=== PATIENT | female | born 1945 | race Caucasian/White ===

== ENCOUNTER 2016-06-17 10:25 | Inpatient (IN) | payer OTHER, MEDICAID ==
[~2016-06-17] VITALS: Ht 157.5 cm; Wt 82.6 kg
[~2016-06-17 10:25] MED LIST: ALPR0.25 PO; ATOR20TA PO; BACL10TA PO; DIPH25CA39 PO; DULO60CA PO; FERR-7 PO; FEXO-42 PO; FLUT100M7 IN; FOLI1TAB6 OR; GABA300C8 PO; HYDR25TA4 PO; LEFL20TA10 PO; LEV250T PO; LEVO50TA61 PO; LUBI24CA6 PO; MELO-41 OR; METO100T87 PO; NOR10T PO; NUTRTAB OR; PANT40TA2 PO; POTA10TA34 PO; PRED-188 PO; RIT50I IV; SENN-58 OR; TEMA15CA PO; TERI600S SUBCUT; [UNRECOGNIZED DRUG - CODE] PO
[2016-06-17 11:51] LABS: Basophils # (auto) 0 uL; Basophils % (auto) 0.4 % (0.0-2.0); Eosinophils # (auto) 0.1 uL; Eosinophils % (auto) 1.1 % (0.0-7.0); Hematocrit 38.2 % (36.0-46.0); Hemoglobin 12.3 g/dL (12.2-16.2); Lymphocytes # (auto) 0.8 uL; Lymphocytes % (auto) 6.9 % (10.0-50.0); Mean Corpuscular Hemoglobin 28.8 pg (28.0-32.0); Mean Corpuscular Hgb Conc. 32.1 g/dL (32.0-36.0); Mean Corpuscular Volume 89.7 fL (80.0-100.0); Mean Platelet Volume 9.1 fL (7.4-10.4); Monocytes # (auto) 0.8 uL; Monocytes % (auto) 7.2 % (0.0-12.0); Neutrophils # (auto) 9.9 uL; Neutrophils % (auto) 84.4 % (37.0-80.0); Platelet Count (auto) 290 10^3/uL (140-450); Red Cell Distribution Width 14.8 % (11.6-16.0); White Blood Cell 11.7 10^3/uL (4.4-10.8)
[2016-06-17] MEDS ORDERED: SODIUM CHLORIDE 0.9% 500 ML IVB ONE (12:02)
[2016-06-17] MEDS ORDERED: LEVOFLOXACIN 500 MG/100 ML PREMIX BAG IV ONE (12:15)
[2016-06-17 12:25] LABS: Albumin 3.7 g/dL (3.4-5.0); Alkaline Phosphatase 90 U/L (45-117); Anion Gap 12 (5-15); Aspartate Aminotransferase 17 U/L (15-37); BUN/Creatinine Ratio 20.2; Bilirubin, Total 0.3 mg/dL (0.2-1.0); Blood Urea Nitrogen 20 mg/dL (7-18); Calcium 9.3 mg/dL (8.5-10.1); Carbon Dioxide 28 mmol/L (21-32); Chloride 108 mmol/L (98-107); GFR African American 72 mL/min; GFR Non-African American 59 mL/min; Glucose 93 mg/dL (74-106); Potassium 3.6 mmol/L (3.5-5.1); Sodium 148 mmol/L (136-145); Total Protein 7.3 g/dL (6.4-8.2)
[2016-06-17] MEDS ORDERED: FENT25DI2 TD (13:33)
[2016-06-17] MEDS ORDERED: FURO20TA PO (13:34)
[2016-06-17] MEDS ORDERED: HYDR2TAB27 PO (13:34)
[2016-06-17] MEDS ORDERED: BACLOFEN 10 MG TAB PO PRN (15:15)
[2016-06-17] MEDS ORDERED: METOPROLOL SUCCINATE XL 50 MG TAB PO ONE (15:15)
[2016-06-17] MEDS ORDERED: ERTAPENEM SOD INJ 1 GM in SODIUM CHL 0.9% 50 ML IV ONE (15:15)
[2016-06-17] MEDS: SOD CHL 0.45% 1,000 ML IV SCH (15:51)
[2016-06-17 16:05] LABS: Urine Bilirubin Negative (Negative); Urine Blood Negative /uL (Negative); Urine Color Yellow (Yellow); Urine Glucose Normal (Normal); Urine Ketone TRACE (Negative); Urine Nitrite Negative (Negative); Urine RBC 1 /hpf (0 - 4); Urine Squamous Epithelial Cell FEW /hpf (<5); Urine Urobilinogen Normal (Negative)
[2016-06-17] MEDS: HYDROcodone-ACET 5/325MG TAB PO PRN (17:07)
[2016-06-17 20:00] VITALS: BP 163/87
[2016-06-17] MEDS: HYDROmorphone HCL 2 MG/ML VL IV PRN (20:10)
[2016-06-17 22:00] VITALS: BP 163/87
[2016-06-17] MEDS ORDERED: TEMAZEPAM 15 MG CAP PO PRN (23:00)
[2016-06-18] MEDS: HYDROmorphone HCL 2 MG/ML VL IV PRN ×2 (01:54→06:38)
[2016-06-18 05:30] VITALS: BP 153/90
[2016-06-18] MEDS: LEVOTHYROXINE SODIUM 100 MCG TAB PO SCH (06:21)
[2016-06-18] MEDS: SOD CHL 0.45% 1,000 ML IV SCH (06:37)
[2016-06-18 06:45] LABS: INR 1.02 (0.9-1.15); Partial Thromboplastin Time 26.2 sec (22.64-33.71)
[2016-06-18 06:57] LABS: BUN/Creatinine Ratio 16.9; Calcium 8.4 mg/dL (8.5-10.1); Potassium 3.3 mmol/L (3.5-5.1)
[2016-06-18 07:34] LABS: Basophils # (auto) 0 uL; Basophils % (auto) 0.2 % (0.0-2.0); Eosinophils # (auto) 0.2 uL; Eosinophils % (auto) 2.4 % (0.0-7.0); Hematocrit 34.3 % (36.0-46.0); Hemoglobin 11.1 g/dL (12.2-16.2); Lymphocytes # (auto) 1.1 uL; Lymphocytes % (auto) 14.4 % (10.0-50.0); Mean Corpuscular Hemoglobin 28.8 pg (28.0-32.0); Mean Corpuscular Hgb Conc. 32.2 g/dL (32.0-36.0); Mean Corpuscular Volume 89.3 fL (80.0-100.0); Mean Platelet Volume 9.1 fL (7.4-10.4); Monocytes # (auto) 0.7 uL; Monocytes % (auto) 9.3 % (0.0-12.0); Neutrophils # (auto) 5.7 uL; Neutrophils % (auto) 73.7 % (37.0-80.0); Platelet Count (auto) 270 10^3/uL (140-450); White Blood Cell 7.7 10^3/uL (4.4-10.8)
[2016-06-18 07:51] VITALS: BP 164/93
[2016-06-18] MEDS ORDERED: D5W/SOD CHL 0.45%/KCL 40MEQ 1,000 ML IV ONE (09:00)
[2016-06-18] MEDS ORDERED: ONDANSETRON HCL 4 MG/2 ML VIAL IV PRN (09:00)
[2016-06-18] MEDS ORDERED: ERTAPENEM SOD INJ 1 GM in SODIUM CHL 0.9% 50 ML IV SCH (10:00)
[2016-06-18] MEDS: predniSONE 5 MG TAB PO SCH (10:52)
[2016-06-18] MEDS: FOLIC ACID 1 MG TAB PO SCH (10:52)
[2016-06-18] MEDS: PANTOPRAZOLE 40 MG TAB PO SCH (10:53)
[2016-06-18] MEDS: METOPROLOL SUCCINATE XL 50 MG TAB PO SCH (10:57)
[2016-06-18] MEDS ORDERED: ALPRAZolam 0.25 MG TAB PO PRN (11:00)
[2016-06-18] MEDS ORDERED: fentaNYL 100MCG/HR 100 MCG/HR PAT TD SCH (11:00)
[2016-06-18] MEDS ORDERED: cefTRIAXone 1GM/50ML D5W 50 ML IV ONE (11:00)
[2016-06-18] MEDS ORDERED: POTASSIUM CHL 20 Meq TABLET PO ONE (11:00)
[2016-06-18] MEDS: IPRATROPIUM BROM 0.5 MG/2.5ML INH SOL NEB SCH ×2 (12:54→18:00)
[2016-06-18] MEDS: ALBUTEROL SULF 2.5 MG/0.5ML(0.5%) NEB SOLN NEB SCH ×2 (12:54→18:00)
[2016-06-18 13:45] VITALS: BP 149/68
[2016-06-18] MEDS: GABAPENTIN 300 MG CAP PO SCH ×2 (14:28→21:34)
[2016-06-18 16:10] VITALS: BP 162/89
[2016-06-18] MEDS: HYDROcodone-ACET 5/325MG TAB PO PRN (20:14)
[2016-06-18 22:00] VITALS: BP 151/78
[2016-06-19] MEDS: HYDROcodone-ACET 5/325MG TAB PO PRN (02:28)
[2016-06-19] MEDS: LEVOTHYROXINE SODIUM 100 MCG TAB PO SCH (05:28)
[2016-06-19] MEDS: GABAPENTIN 300 MG CAP PO SCH (05:28)
[2016-06-19 05:30] VITALS: BP 151/84
[2016-06-19] MEDS: ALBUTEROL SULF 2.5 MG/0.5ML(0.5%) NEB SOLN NEB SCH ×3 (06:43→12:10)
[2016-06-19] MEDS: IPRATROPIUM BROM 0.5 MG/2.5ML INH SOL NEB SCH ×3 (06:43→12:10)
[2016-06-19 08:48] VITALS: BP 165/97
[2016-06-19] MEDS ORDERED: cefTRIAXone 1GM/50ML D5W 50 ML IV SCH (09:00)
[2016-06-19] MEDS ORDERED: LEFLUNOMIDE 20 MG PO SCH (10:00)
[2016-06-19] MEDS ORDERED: POTASSIUM CHL 20 Meq TABLET PO SCH (10:00)
[2016-06-19] MEDS: FOLIC ACID 1 MG TAB PO SCH (10:45)
[2016-06-19] MEDS: METOPROLOL SUCCINATE XL 50 MG TAB PO SCH (10:46)
[2016-06-19] MEDS: predniSONE 5 MG TAB PO SCH (10:47)
[2016-06-19] MEDS: PANTOPRAZOLE 40 MG TAB PO SCH (10:47)
[2016-06-19 11:43] VITALS: BP 165/97
[2016-06-19 12:16] VITALS: BP 154/93
[2016-06-19 13:50] VITALS: BP 165/97
== END 2016-06-19 13:40 | disposition home or self-care (01) | DRG 92 ==
LOC: ER 10:25 → OVERFLOW 10:26 → EAST 18:03
PROVIDERS: ADMIT Internal Medicine; ATTEND Internal Medicine
DX: G92 Toxic encephalopathy (principal); J96.10 Chronic respiratory failure, unspecified whether with hypoxia or hypercapnia; N39.0 Urinary tract infection, site not specified; I50.42 Chronic combined systolic (congestive) and diastolic (congestive) heart failure; M06.9 Rheumatoid arthritis, unspecified; J44.9 Chronic obstructive pulmonary disease, unspecified; G89.29 Other chronic pain; E03.9 Hypothyroidism, unspecified; E78.5 Hyperlipidemia, unspecified; F41.9 Anxiety disorder, unspecified; T40.605A Adverse effect of unspecified narcotics, initial encounter; I11.0 Hypertensive heart disease with heart failure; E66.9 Obesity, unspecified; I25.10 Atherosclerotic heart disease of native coronary artery without angina pectoris; M19.90 Unspecified osteoarthritis, unspecified site; Z85.9 Personal history of malignant neoplasm, unspecified; Z87.891 Personal history of nicotine dependence; Z90.710 Acquired absence of both cervix and uterus; Z98.890 Other specified postprocedural states; Z68.33 Body mass index [BMI] 33.0-33.9, adult; Y92.89 Other specified places as the place of occurrence of the external cause; Z79.899 Other long term (current) drug therapy; Z86.010 Personal history of colon polyps
CPT/HCPCS: 36415; 51702; 70450; 71010; 72170; 80048; 80053; 81001; 82962; 83605; 83735; 84443; 84484; 85025; 85610; 85730; 87040; 93005; 94640; 94761; 96361; 96365; J0696; J1335; J1956; J2405

== ENCOUNTER 2017-02-04 08:23 | Inpatient (IN) | payer OTHER, MEDICAID ==
[~2017-02-04] VITALS: Ht 160 cm; Wt 92.6 kg
[~2017-02-04 08:23] MED LIST changes: +FENT25DI2 TD; +FURO20TA PO; +GABA-497 PO; -GABA300C8 PO; -HYDR25TA4 PO; +HYDR2TAB29 PO; -LEV250T PO; -NOR10T PO; -RIT50I IV; -TERI600S SUBCUT; -[UNRECOGNIZED DRUG - CODE] PO
[2017-02-04 09:21] LABS: Basophils # (auto) 0.1 uL; Eosinophils # (auto) 0.1 uL; Eosinophils % (auto) 0.7 % (0.0-7.0); Hematocrit 32.8 % (36.0-46.0); Hemoglobin 10.3 g/dL (12.2-16.2); Lymphocytes # (auto) 0.8 uL; Lymphocytes % (auto) 5.8 % (10.0-50.0); Mean Corpuscular Hgb Conc. 31.5 g/dL (32.0-36.0); Mean Corpuscular Volume 88.6 fL (80.0-100.0); Mean Platelet Volume 8.6 fL (6.9-10.8); Monocytes # (auto) 1.3 uL; Monocytes % (auto) 9.3 % (0.0-12.0); Neutrophils % (auto) 83.2 % (37.0-80.0); Nucleated Red Blood Cells % 0.2 %; Platelet Count (auto) 230 10^3/uL (140-450); Red Cell Distribution Width 14.9 % (11.8-14.3); White Blood Cell 14.5 10^3/uL (4.4-10.8)
[2017-02-04 09:28] LABS: Anion Gap 7 (5-15); Aspartate Aminotransferase 33 U/L (15-37); BUN/Creatinine Ratio 19.3; Blood Urea Nitrogen 29 mg/dL (7-18); Calcium 8.7 mg/dL (8.5-10.1); Carbon Dioxide 28 mmol/L (21-32); Chloride 109 mmol/L (98-107); GFR African American 44 mL/min; GFR Non-African American 37 mL/min; Glucose 136 mg/dL (74-106); Magnesium 1.5 mg/dL (1.6-2.6); Potassium 3.9 mmol/L (3.5-5.1); Sodium 144 mmol/L (136-145)
[2017-02-04 09:33] LABS: Alkaline Phosphatase 95 U/L (45-117); Bilirubin, Total 0.3 mg/dL (0.2-1.0); Total Protein 6.4 g/dL (6.4-8.2)
[2017-02-04 10:21] LABS: Urine Bilirubin Negative (Negative); Urine Blood 1+ /uL (Negative); Urine Color Yellow (Yellow); Urine Glucose Normal (Normal); Urine Ketone Negative (Negative); Urine Mucus FEW (None Seen); Urine Nitrite POSITIVE (Negative); Urine RBC 23 /hpf (0 - 4); Urine Urobilinogen Normal (Negative); Urine WBC Clumps PRESENT /hpf (None Seen); Urine pH 5.5 (5.0-8.0)
[2017-02-04] MEDS ORDERED: cefTRIAXone 1GM/50ML D5W 50 ML IV ONE (10:45)
[2017-02-04] MEDS ORDERED: AZITHROMYCIN 500MG/ 250ML 250 ML IV ONE (10:45)
[2017-02-04] MEDS ORDERED: ACETAMINOPHEN 325 MG TAB PO PRN (12:45)
[2017-02-04] MEDS ORDERED: TEMAZEPAM 15 MG CAP PO PRN (12:45)
[2017-02-04] MEDS ORDERED: NITROGLYCERIN 0.4 MG SL TAB SL PRN (12:45)
[2017-02-04] MEDS ORDERED: DOCUSATE SOD 100 MG CAP PO PRN (12:45)
[2017-02-04] MEDS ORDERED: ONDANSETRON HCL 4 MG/2 ML VIAL IV PRN (12:45)
[2017-02-04] MEDS ORDERED: HYDROcodone-ACET 5/325MG TAB PO PRN (12:45)
[2017-02-04] MEDS: FAMOTIDINE 20 MG TAB PO SCH (12:59)
[2017-02-04] MEDS ORDERED: MULTIPLE VITAMIN TAB PO ONE (13:00)
[2017-02-04] MEDS ORDERED: LACTULOSE 20Gm/30ML SOLN PO PRN (13:00)
[2017-02-04] MEDS ORDERED: ALPRAZolam 0.25 MG TAB PO PRN (13:00)
[2017-02-04] MEDS ORDERED: BACLOFEN 10 MG TAB PO PRN (13:15)
[2017-02-04] MEDS ORDERED: PANTOPRAZOLE 40 MG TAB PO ONE (13:15)
[2017-02-04] MEDS ORDERED: POTASSIUM CHL 10 Meq TABLET PO ONE (13:15)
[2017-02-04] MEDS ORDERED: ESTRADIOL 1 MG TAB PO ONE (13:15)
[2017-02-04] MEDS ORDERED: METOPROLOL SUCCINATE XL 50 MG TAB PO ONE (13:15)
[2017-02-04] MEDS ORDERED: predniSONE 5 MG TAB PO ONE (13:15)
[2017-02-04] MEDS ORDERED: FOLIC ACID 1 MG TAB PO ONE (13:15)
[2017-02-04] MEDS ORDERED: DULoxetine HCL 30 MG CAP PO ONE (13:15)
[2017-02-04] MEDS ORDERED: FUROSEMIDE 20 MG TAB PO ONE (13:15)
[2017-02-04] MEDS: SODIUM CHLOR 0.9% PF (SALINE LOCK) 10ML VIAL IV SCH ×2 (13:30→22:17)
[2017-02-04] MEDS: GABAPENTIN 300 MG CAP PO SCH ×2 (13:33→22:26)
[2017-02-04] MEDS: ALBUTEROL SULF 2.5 MG/0.5ML(0.5%) NEB SOLN NEB SCH ×2 (14:37→18:58)
[2017-02-04 16:58] VITALS: BP 130/65
[2017-02-04 17:31] VITALS: BP 130/65
[2017-02-04] MEDS: FERROUS SULFATE 325 MG TAB PO SCH (18:43)
[2017-02-04] MEDS: HYDROmorphone HCL 2 MG TAB PO PRN (18:44)
[2017-02-04] MEDS: diphenhdrAMINE HCL 25 MG CAP PO SCH (18:44)
[2017-02-04] MEDS: BUDESONIDE (INHALATION) 0.5 MG/2 ML NEB NEB SCH (18:57)
[2017-02-04 20:17] VITALS: BP 130/65
[2017-02-04] MEDS ORDERED: DEXTROSE (50%) 50ML SYRG IV PRN (20:30)
[2017-02-04 21:54] VITALS: BP 115/72
[2017-02-04] MEDS ORDERED: SENNA 8.6 MG TAB PO SCH (22:00)
[2017-02-04] MEDS ORDERED: FAMOTIDINE 20 MG TAB PO SCH (22:00)
[2017-02-04] MEDS ORDERED: ATORVASTATIN 20 MG TAB PO SCH (22:00)
[2017-02-04] MEDS ORDERED: PATIENTS OWN MEDICATION IN SCH ×2 (22:00)
[2017-02-04] MEDS: InsuLIN REG 1unit/0.01ml Soln (100units/ml) SC SCH (22:00)
[2017-02-04] MEDS: FEXOFENADINE HCL 60 MG TAB PO SCH (22:22)
[2017-02-04] MEDS: ACCU-CHEK COMFORT CURVE STRIP VI SCH (22:32)
[2017-02-05] MEDS: diphenhdrAMINE HCL 25 MG CAP PO SCH ×3 (00:43→12:00)
[2017-02-05] MEDS: HYDROmorphone HCL 2 MG TAB PO PRN ×2 (03:31→10:20)
[2017-02-05 05:00] VITALS: BP_SYST 126; BP_SYST 134; BP_DIAS 68; BP_DIAS 73
[2017-02-05] MEDS: ALBUTEROL SULF 2.5 MG/0.5ML(0.5%) NEB SOLN NEB SCH (06:28)
[2017-02-05] MEDS: BUDESONIDE (INHALATION) 0.5 MG/2 ML NEB NEB SCH (06:28)
[2017-02-05] MEDS: SODIUM CHLOR 0.9% PF (SALINE LOCK) 10ML VIAL IV SCH (06:31)
[2017-02-05] MEDS: GABAPENTIN 300 MG CAP PO SCH ×2 (06:35→14:52)
[2017-02-05 06:41] LABS: Basophils # (auto) 0.1 uL; Eosinophils # (auto) 0.2 uL; Eosinophils % (auto) 1.8 % (0.0-7.0); Hematocrit 30.2 % (36.0-46.0); Lymphocytes # (auto) 1.3 uL; Lymphocytes % (auto) 12.5 % (10.0-50.0); Mean Corpuscular Hemoglobin 29.1 pg (28.0-32.0); Mean Corpuscular Volume 88.1 fL (80.0-100.0); Mean Platelet Volume 8.7 fL (6.9-10.8); Monocytes # (auto) 1.1 uL; Monocytes % (auto) 10.6 % (0.0-12.0); Neutrophils # (auto) 7.9 uL; Neutrophils % (auto) 74.1 % (37.0-80.0); Nucleated Red Blood Cells % 0.1 %; Platelet Count (auto) 215 10^3/uL (140-450); Red Cell Distribution Width 15.2 % (11.8-14.3); White Blood Cell 10.7 10^3/uL (4.4-10.8)
[2017-02-05] MEDS: InsuLIN REG 1unit/0.01ml Soln (100units/ml) SC SCH ×2 (06:41→11:30)
[2017-02-05] MEDS: ACCU-CHEK COMFORT CURVE STRIP VI SCH ×2 (06:41→11:30)
[2017-02-05 06:50] LABS: B-Type Natriuretic Peptide 146.66 pg/mL (0-100)
[2017-02-05] MEDS ORDERED: LEVOTHYROXINE SODIUM 100 MCG TAB PO SCH (07:00)
[2017-02-05 07:10] LABS: Albumin 2.9 g/dL (3.4-5.0); BUN/Creatinine Ratio 21.5; Bilirubin, Total 0.2 mg/dL (0.2-1.0); Calcium 8.3 mg/dL (8.5-10.1); Potassium 3.4 mmol/L (3.5-5.1); Total Protein 6.4 g/dL (6.4-8.2)
[2017-02-05 07:31] LABS: Temperature: 21.6 C (20.0-25.0)
[2017-02-05] MEDS: Boost Glucose Control 8 Ounces PO SCH ×2 (08:00→13:04)
[2017-02-05] MEDS: FERROUS SULFATE 325 MG TAB PO SCH (08:17)
[2017-02-05 08:56] VITALS: BP 136/71
[2017-02-05] MEDS ORDERED: cefTRIAXone 1GM/50ML D5W 50 ML IV SCH (09:00)
[2017-02-05] MEDS ORDERED: ESTRADIOL 1 MG TAB PO SCH (10:00)
[2017-02-05] MEDS ORDERED: POTASSIUM CHL 10 Meq TABLET PO SCH (10:00)
[2017-02-05] MEDS ORDERED: predniSONE 5 MG TAB PO SCH (10:00)
[2017-02-05] MEDS ORDERED: AZITHROMYCIN 500MG/ 250ML 250 ML IV SCH (10:00)
[2017-02-05] MEDS ORDERED: FUROSEMIDE 20 MG TAB PO SCH (10:00)
[2017-02-05] MEDS ORDERED: PANTOPRAZOLE 40 MG TAB PO SCH (10:00)
[2017-02-05] MEDS ORDERED: LEFLUNOMIDE 20 MG PO SCH (10:00)
[2017-02-05] MEDS ORDERED: METOPROLOL SUCCINATE XL 50 MG TAB PO SCH ×2 (10:00)
[2017-02-05] MEDS ORDERED: FOLIC ACID 1 MG TAB PO SCH (10:00)
[2017-02-05] MEDS ORDERED: MULTIPLE VITAMIN TAB PO SCH (10:00)
[2017-02-05] MEDS ORDERED: DULoxetine HCL 30 MG CAP PO SCH (10:00)
[2017-02-05] MEDS: FAMOTIDINE 20 MG TAB PO SCH (10:12)
[2017-02-05] MEDS: FEXOFENADINE HCL 60 MG TAB PO SCH (10:16)
[2017-02-05 13:27] VITALS: BP 142/94
[2017-02-05 14:53] VITALS: BP 136/71
== END 2017-02-05 17:49 | disposition home health service (06) | DRG 871 ==
LOC: EDBD 08:23 → ER 08:23 → TELE 08:24 → TELE-EAST 17:05
PROVIDERS: ADMIT Internal Medicine; ATTEND Internal Medicine
DX: A41.9 Sepsis, unspecified organism (principal); G92 Toxic encephalopathy; E44.0 Moderate protein-calorie malnutrition; J18.9 Pneumonia, unspecified organism; E11.21 Type 2 diabetes mellitus with diabetic nephropathy; Z99.81 Dependence on supplemental oxygen; G45.9 Transient cerebral ischemic attack, unspecified; J44.0 Chronic obstructive pulmonary disease with (acute) lower respiratory infection; N39.0 Urinary tract infection, site not specified; E11.65 Type 2 diabetes mellitus with hyperglycemia; D63.8 Anemia in other chronic diseases classified elsewhere; E03.9 Hypothyroidism, unspecified; E11.22 Type 2 diabetes mellitus with diabetic chronic kidney disease; I25.10 Atherosclerotic heart disease of native coronary artery without angina pectoris; E78.5 Hyperlipidemia, unspecified; R09.02 Hypoxemia; N18.3 Chronic kidney disease, stage 3 (moderate); M06.9 Rheumatoid arthritis, unspecified; M19.90 Unspecified osteoarthritis, unspecified site; Z68.36 Body mass index [BMI] 36.0-36.9, adult; Z87.891 Personal history of nicotine dependence; Z90.710 Acquired absence of both cervix and uterus
CPT/HCPCS: 36415; 70450; 71010; 80053; 81001; 82962; 83036; 83735; 83880; 84443; 84484; 85025; 87040; 87086; 87088; 87186; 93005; 94640; 96361; 96365; J0696

== ENCOUNTER 2017-04-23 09:48 | Inpatient (IN) | payer OTHER, MEDICAID ==
[~2017-04-23] VITALS: Ht 160 cm; Wt 92.1 kg
[2017-04-23] MEDS: BUDESONIDE (INHALATION) 0.5 MG/2 ML NEB NEB SCH
[~2017-04-23 09:48] MED LIST changes: -GABA-497 PO; +GABA300C10 PO; -HYDR2TAB29 PO; +HYDR2TAB58 PO; +LEFL1TAB3 PO; -LEFL20TA10 PO
[2017-04-23 10:57] LABS: Urine Bacteria NONE SEEN /hpf (None Seen); Urine Blood Negative /uL (Negative); Urine Specific Gravity 1.008 (1.001-1.035); Urine WBC <1 /hpf (0 - 5)
[2017-04-23 10:57] LABS: Basophils # (auto) 0.2 uL; Eosinophils # (auto) 0.2 uL; Eosinophils % (auto) 1.5 % (0.0-7.0); Hematocrit 34.8 % (36.0-46.0); Hemoglobin 10.8 g/dL (12.2-16.2); Lymphocytes # (auto) 0.9 uL; Lymphocytes % (auto) 5.6 % (10.0-50.0); Mean Corpuscular Hemoglobin 27.5 pg (28.0-32.0); Mean Corpuscular Hgb Conc. 31.1 g/dL (32.0-36.0); Mean Corpuscular Volume 88.3 fL (80.0-100.0); Monocytes # (auto) 1.7 uL; Monocytes % (auto) 10.7 % (0.0-12.0); Neutrophils # (auto) 13.3 uL; Neutrophils % (auto) 81.2 % (37.0-80.0); Platelet Count (auto) 261 10^3/uL (140-450); Red Blood Cells 3.94 10^6/uL (4.0-5.20); Red Cell Distribution Width 15.1 % (11.8-14.3); White Blood Cell 16.4 10^3/uL (4.4-10.8)
[2017-04-23] MEDS ORDERED: SODIUM CHLORIDE 0.9% 1,000 ML IVB ONE (11:11)
[2017-04-23] MEDS ORDERED: ONDANSETRON HCL 4 MG/2 ML VIAL IV ONE (11:15)
[2017-04-23 11:23] LABS: Alanine Aminotransferase 15 U/L (13-56); Albumin 3.3 g/dL (3.4-5.0); Alkaline Phosphatase 90 U/L (45-117); Anion Gap 10 (5-15); Aspartate Aminotransferase 16 U/L (15-37); BUN/Creatinine Ratio 19.2; Bilirubin, Total 0.3 mg/dL (0.2-1.0); Blood Urea Nitrogen 30 mg/dL (7-18); Calcium 8.6 mg/dL (8.5-10.1); Carbon Dioxide 28 mmol/L (21-32); Chloride 106 mmol/L (98-107); GFR African American 42 mL/min; GFR Non-African American 35 mL/min; Glucose 110 mg/dL (74-106); Magnesium 1.8 mg/dL (1.6-2.6); Potassium 3.8 mmol/L (3.5-5.1); Sodium 144 mmol/L (136-145); Total Protein 7.2 g/dL (6.4-8.2)
[2017-04-23 12:03] LABS: INR 0.92 (0.9-1.15)
[2017-04-23 12:08] LABS: Amylase 50 U/L (25-115); Lipase 83 U/L (73-393)
[2017-04-23] MEDS ORDERED: MORPHINE SULF INJ 2 MG/ML SYRINGE 1ML IV ONE (12:30)
[2017-04-23] MEDS ORDERED: AZITHROMYCIN 500MG/ 250ML 250 ML IV ONE (12:45)
[2017-04-23] MEDS ORDERED: cefTRIAXone 1GM/10ml IVPUSH 10 ML IV ONE (12:45)
[2017-04-23] MEDS ORDERED: MEPERIDINE HCL (25 MG/ML) 1ML VIAL IV ONE (12:45)
[2017-04-23] MEDS ORDERED: MEPERIDINE HCL (50 MG/ML) 1 ML VIAL ONE (12:46)
[2017-04-23] MEDS ORDERED: OSELTAMIVIR 75 MG CAP PO ONE (13:30)
[2017-04-23] MEDS ORDERED: LACTULOSE 20Gm/30ML SOLN PO PRN (13:30)
[2017-04-23] MEDS ORDERED: PIPERACILLIN-TAZOB 3.375GM 50 ML IV ONE (13:30)
[2017-04-23] MEDS ORDERED: fentaNYL 25MCG/HR 25 MCG/HR PAT TD SCH (13:30)
[2017-04-23] MEDS ORDERED: MORPHINE SULF INJ 2 MG/ML SYRINGE 1ML IV PRN (13:30)
[2017-04-23] MEDS ORDERED: HYDROmorphone HCL 2 MG/ML VL IV PRN (13:30)
[2017-04-23] MEDS ORDERED: PROMETHAZINE HCL 25 MG/ML 1ML IV PRN (13:30)
[2017-04-23] MEDS ORDERED: LORazepam 0.5 MG TAB PO PRN (13:30)
[2017-04-23] MEDS ORDERED: NITROGLYCERIN 0.4 MG SL TAB SL PRN (13:30)
[2017-04-23] MEDS ORDERED: ALBUTEROL SULF 2.5 MG/0.5ML(0.5%) NEB SOLN NEB PRN (13:30)
[2017-04-23] MEDS ORDERED: ACETAMINOPHEN 500 MG TAB PO PRN (13:30)
[2017-04-23] MEDS: SODIUM CHLORIDE 0.9% 1,000 ML IV SCH (13:55)
[2017-04-23] MEDS ORDERED: METOPROLOL SUCCINATE XL 50 MG TAB PO ONE (14:15)
[2017-04-23] MEDS ORDERED: POTASSIUM CHL 10 Meq TABLET PO ONE (14:15)
[2017-04-23] MEDS ORDERED: fentaNYL 100MCG/HR 100 MCG/HR PAT TD SCH (14:30)
[2017-04-23] MEDS ORDERED: DULoxetine HCL 30 MG CAP PO ONE (14:30)
[2017-04-23] MEDS: ENOXAPARIN SOD 40 MG/0.4 ML SYRINGE SC SCH (14:40)
[2017-04-23] MEDS: methylPREDNISolone SOD SUCC 40 MG/ML VL IV SCH (14:40)
[2017-04-23] MEDS: GABAPENTIN 300 MG CAP PO SCH ×2 (14:41→21:20)
[2017-04-23 17:25] VITALS: BP 99/50
[2017-04-23] MEDS: LINEZOLID 600MG/300ML 300 ML IV SCH (17:52)
[2017-04-23] MEDS: ALBUTEROL SULF 2.5 MG/0.5ML(0.5%) NEB SOLN NEB SCH ×2 (18:00)
[2017-04-23] MEDS: HYDROmorphone HCL 2 MG TAB PO PRN (18:45)
[2017-04-23] MEDS: IPRATROPIUM BROM 0.5 MG/2.5ML INH SOL NEB SCH (19:56)
[2017-04-23] MEDS: ATORVASTATIN 20 MG TAB PO SCH (21:20)
[2017-04-23] MEDS: HYDROcodone-ACET 5/325MG TAB PO PRN (21:21)
[2017-04-23] MEDS: FERROUS SULFATE 325 MG TAB PO SCH (21:21)
[2017-04-23 22:00] VITALS: BP 129/78
[2017-04-23] MEDS: SENNA 8.6 MG TAB PO SCH (22:00)
[2017-04-23] MEDS: OSELTAMIVIR 30 MG CAP PO SCH (22:00)
[2017-04-23] MEDS ORDERED: TEMAZEPAM 15 MG CAP PO SCH (22:00)
[2017-04-23] MEDS: ALPRAZolam 0.25 MG TAB PO SCH (22:00)
[2017-04-23] MEDS: LUBIPROSTONE 24 MCG PO SCH (22:00)
[2017-04-23] MEDS: BACLOFEN 10 MG TAB PO PRN (23:10)
[2017-04-23] MEDS: PIPERACILLIN-TAZOB 3.375GM 50 ML IV SCH (23:11)
[2017-04-23] MEDS: TEMAZEPAM 15 MG CAP PO PRN (23:11)
[2017-04-23 23:45] VITALS: BP 99/50
[2017-04-24] MEDS: HYDROmorphone HCL 2 MG TAB PO PRN ×5 (01:04→22:04)
[2017-04-24] MEDS: methylPREDNISolone SOD SUCC 40 MG/ML VL IV SCH ×2 (01:30→12:09)
[2017-04-24] MEDS: SODIUM CHLORIDE 0.9% 1,000 ML IV SCH (02:42)
[2017-04-24] MEDS: LINEZOLID 600MG/300ML 300 ML IV SCH (04:42)
[2017-04-24 05:00] VITALS: BP 159/83
[2017-04-24] MEDS: HYDROcodone-ACET 5/325MG TAB PO PRN ×2 (05:29→17:00)
[2017-04-24 05:39] LABS: Basophils # (auto) 0 uL; Basophils % (auto) 0.3 % (0.0-2.0); Eosinophils # (auto) 0 uL; Hematocrit 30.7 % (36.0-46.0); Hemoglobin 9.7 g/dL (12.2-16.2); Lymphocytes % (auto) 6.2 % (10.0-50.0); Mean Corpuscular Hemoglobin 28.1 pg (28.0-32.0); Mean Corpuscular Hgb Conc. 31.6 g/dL (32.0-36.0); Mean Corpuscular Volume 88.9 fL (80.0-100.0); Monocytes # (auto) 1.2 uL; Neutrophils # (auto) 14.5 uL; Neutrophils % (auto) 86.5 % (37.0-80.0); Platelet Count (auto) 229 10^3/uL (140-450); Red Blood Cells 3.46 10^6/uL (4.0-5.20); Red Cell Distribution Width 15.2 % (11.8-14.3); White Blood Cell 16.7 10^3/uL (4.4-10.8)
[2017-04-24 05:55] LABS: Albumin 2.8 g/dL (3.4-5.0); BUN/Creatinine Ratio 21.9; Bilirubin, Total 0.3 mg/dL (0.2-1.0); Potassium 4.4 mmol/L (3.5-5.1); Total Protein 6.4 g/dL (6.4-8.2)
[2017-04-24] MEDS: ALBUTEROL SULF 2.5 MG/0.5ML(0.5%) NEB SOLN NEB SCH ×7 (06:00→18:00)
[2017-04-24] MEDS: PIPERACILLIN-TAZOB 3.375GM 50 ML IV SCH ×3 (06:00→12:09)
[2017-04-24] MEDS: IPRATROPIUM BROM 0.5 MG/2.5ML INH SOL NEB SCH ×4 (08:06→20:10)
[2017-04-24] MEDS: BUDESONIDE (INHALATION) 0.5 MG/2 ML NEB NEB SCH ×2 (08:07→20:10)
[2017-04-24] MEDS: FOLIC ACID 1 MG TAB PO SCH (09:06)
[2017-04-24] MEDS: LEVOTHYROXINE SODIUM 100 MCG TAB PO SCH (09:06)
[2017-04-24] MEDS: AZITHROMYCIN 500MG/ 250ML 250 ML IV SCH (09:16)
[2017-04-24] MEDS: GABAPENTIN 300 MG CAP PO SCH ×3 (09:16→22:03)
[2017-04-24] MEDS: FERROUS SULFATE 325 MG TAB PO SCH ×2 (09:17→22:03)
[2017-04-24] MEDS: SENNA 8.6 MG TAB PO SCH ×2 (09:17→22:04)
[2017-04-24] MEDS: DULoxetine HCL 30 MG CAP PO SCH (09:17)
[2017-04-24] MEDS: POTASSIUM CHL 10 Meq TABLET PO SCH (09:17)
[2017-04-24] MEDS: LUBIPROSTONE 24 MCG PO SCH ×2 (09:18→22:00)
[2017-04-24] MEDS: METOPROLOL SUCCINATE XL 50 MG TAB PO SCH (09:18)
[2017-04-24] MEDS: ALPRAZolam 0.25 MG TAB PO SCH ×2 (09:18→22:04)
[2017-04-24] MEDS: ENOXAPARIN SOD 40 MG/0.4 ML SYRINGE SC SCH (09:18)
[2017-04-24] MEDS: LEFLUNOMIDE 20 MG PO SCH (09:18)
[2017-04-24 09:25] VITALS: BP 149/82
[2017-04-24] MEDS ORDERED: PANTOPRAZOLE 40 MG TAB PO SCH (10:00)
[2017-04-24] MEDS ORDERED: predniSONE 20 MG TAB PO SCH (10:00)
[2017-04-24] MEDS ORDERED: PANTOPRAZOLE 40 MG TAB PO ONE (10:00)
[2017-04-24] MEDS: OSELTAMIVIR 30 MG CAP PO SCH (10:52)
[2017-04-24 11:37] VITALS: BP 131/79
[2017-04-24] MEDS: BACLOFEN 10 MG TAB PO PRN ×2 (16:11→22:04)
[2017-04-24 16:49] VITALS: BP 140/83
[2017-04-24] MEDS ORDERED: MORPHINE SULFATE 4 MG/ML SYR/VIAL IV PRN (20:00)
[2017-04-24 22:00] VITALS: BP 145/82
[2017-04-24] MEDS: ATORVASTATIN 20 MG TAB PO SCH (22:04)
[2017-04-24] MEDS: TEMAZEPAM 15 MG CAP PO PRN (23:34)
[2017-04-25] MEDS ORDERED: methylPREDNISolone SOD SUCC 40 MG/ML VL IV SCH (01:30)
[2017-04-25] MEDS: HYDROmorphone HCL 2 MG TAB PO PRN ×2 (04:03→08:37)
[2017-04-25] MEDS: BACLOFEN 10 MG TAB PO PRN ×2 (04:08→08:37)
[2017-04-25 05:48] VITALS: BP 153/80
[2017-04-25] MEDS: ALBUTEROL SULF 2.5 MG/0.5ML(0.5%) NEB SOLN NEB SCH ×2 (06:00)
[2017-04-25] MEDS: GABAPENTIN 300 MG CAP PO SCH (06:17)
[2017-04-25] MEDS: FOLIC ACID 1 MG TAB PO SCH (06:17)
[2017-04-25] MEDS: LEVOTHYROXINE SODIUM 100 MCG TAB PO SCH (06:18)
[2017-04-25 06:37] LABS: Basophils # (auto) 0 uL; Basophils % (auto) 0.2 % (0.0-2.0); Eosinophils # (auto) 0 uL; Eosinophils % (auto) 0.1 % (0.0-7.0); Hematocrit 29.7 % (36.0-46.0); Hemoglobin 9.6 g/dL (12.2-16.2); Lymphocytes # (auto) 0.7 uL; Lymphocytes % (auto) 5.5 % (10.0-50.0); Mean Corpuscular Hemoglobin 28.6 pg (28.0-32.0); Mean Corpuscular Hgb Conc. 32.1 g/dL (32.0-36.0); Mean Corpuscular Volume 89.1 fL (80.0-100.0); Monocytes # (auto) 0.9 uL; Monocytes % (auto) 6.9 % (0.0-12.0); Neutrophils # (auto) 11.5 uL; Neutrophils % (auto) 87.3 % (37.0-80.0); Platelet Count (auto) 229 10^3/uL (140-450); Red Blood Cells 3.34 10^6/uL (4.0-5.20); Red Cell Distribution Width 15.1 % (11.8-14.3); White Blood Cell 13.1 10^3/uL (4.4-10.8)
[2017-04-25 06:54] LABS: Calcium 8.5 mg/dL (8.5-10.1); Potassium 3.9 mmol/L (3.5-5.1)
[2017-04-25] MEDS: IPRATROPIUM BROM 0.5 MG/2.5ML INH SOL NEB SCH ×2 (07:04)
[2017-04-25] MEDS: BUDESONIDE (INHALATION) 0.5 MG/2 ML NEB NEB SCH (07:05)
[2017-04-25] MEDS: LUBIPROSTONE 24 MCG PO SCH (08:39)
[2017-04-25] MEDS: LEFLUNOMIDE 20 MG PO SCH (08:39)
[2017-04-25 08:42] VITALS: BP 147/78
[2017-04-25] MEDS ORDERED: cefTRIAXone 1GM/10ml IVPUSH 10 ML IV SCH (09:00)
[2017-04-25] MEDS: POTASSIUM CHL 10 Meq TABLET PO SCH (09:55)
[2017-04-25] MEDS: DULoxetine HCL 30 MG CAP PO SCH (09:55)
[2017-04-25] MEDS: ALPRAZolam 0.25 MG TAB PO SCH (09:55)
[2017-04-25] MEDS: FERROUS SULFATE 325 MG TAB PO SCH (09:55)
[2017-04-25] MEDS: SENNA 8.6 MG TAB PO SCH (09:55)
[2017-04-25] MEDS: METOPROLOL SUCCINATE XL 50 MG TAB PO SCH (09:56)
[2017-04-25] MEDS: ENOXAPARIN SOD 40 MG/0.4 ML SYRINGE SC SCH (09:56)
[2017-04-25] MEDS: AZITHROMYCIN 500MG/ 250ML 250 ML IV SCH (09:57)
== END 2017-04-25 10:25 | disposition home or self-care (01) | DRG 871 ==
LOC: ER 09:48 → EDBD 09:48 → TELE 09:49 → TELE-WESTW 15:12
PROVIDERS: ADMIT Internal Medicine; ATTEND Internal Medicine
DX: A41.9 Sepsis, unspecified organism (principal); J96.20 Acute and chronic respiratory failure, unspecified whether with hypoxia or hypercapnia; N17.0 Acute kidney failure with tubular necrosis; J18.9 Pneumonia, unspecified organism; D63.8 Anemia in other chronic diseases classified elsewhere; N18.3 Chronic kidney disease, stage 3 (moderate); Z99.81 Dependence on supplemental oxygen; M06.9 Rheumatoid arthritis, unspecified; J44.0 Chronic obstructive pulmonary disease with (acute) lower respiratory infection; E03.9 Hypothyroidism, unspecified; E78.5 Hyperlipidemia, unspecified; G89.29 Other chronic pain; I25.10 Atherosclerotic heart disease of native coronary artery without angina pectoris; K44.9 Diaphragmatic hernia without obstruction or gangrene; I70.0 Atherosclerosis of aorta; K80.20 Calculus of gallbladder without cholecystitis without obstruction; M19.90 Unspecified osteoarthritis, unspecified site; K57.30 Diverticulosis of large intestine without perforation or abscess without bleeding; Z79.899 Other long term (current) drug therapy; Z82.49 Family history of ischemic heart disease and other diseases of the circulatory system; Z90.710 Acquired absence of both cervix and uterus; Z87.440 Personal history of urinary (tract) infections; Z87.891 Personal history of nicotine dependence
CPT/HCPCS: 36415; 71045; 74176; 80048; 80053; 81001; 82150; 83605; 83690; 83735; 84484; 85025; 85610; 85730; 87040; 87400; 93005; 94640; G9035; J2405; J2543

== ENCOUNTER 2017-05-18 04:05 | Emergency (ER) | payer OTHER, MEDICAID ==
[~2017-05-18] VITALS: Ht 152.4 cm; Wt 90.7 kg
[~2017-05-18 04:05] MED LIST changes: -FENT25DI2 TD; -FURO20TA PO; -NUTRTAB OR
[2017-05-18] MEDS ORDERED: TETANUS-DIPTH-ACEL PERTUSSIS 0.5ML SYRG IM ONE (05:00)
[2017-05-18] MEDS ORDERED: NIFEdipine 10 MG CAP PO ONE (05:00)
[2017-05-18] MEDS ORDERED: LIDOCAINE 1% HCL (LOCAL ANESTH.) INJ 20ML MDV ONE (05:33)
[2017-05-18 06:06] VITALS: BP 159/75
[2017-05-18] MEDS ORDERED: CLINDAMYCIN 900MG IV 50 ML IV ONE (06:15)
== END 2017-05-18 06:15 | disposition home or self-care (01) ==
LOC: EDBD 04:05 → EDUNIT# 04:05 → ER 04:14
DX: S01.312A Laceration without foreign body of left ear, initial encounter (principal); S09.90XA Unspecified injury of head, initial encounter; M19.90 Unspecified osteoarthritis, unspecified site; I25.10 Atherosclerotic heart disease of native coronary artery without angina pectoris; J44.9 Chronic obstructive pulmonary disease, unspecified; E78.5 Hyperlipidemia, unspecified; I10 Essential (primary) hypertension; Z87.440 Personal history of urinary (tract) infections; Z79.899 Other long term (current) drug therapy; Z90.710 Acquired absence of both cervix and uterus; W01.0XXA Fall on same level from slipping, tripping and stumbling without subsequent striking against object, initial encounter; Y93.89 Activity, other specified; Y99.8 Other external cause status; Y92.89 Other specified places as the place of occurrence of the external cause
CPT/HCPCS: 12014; 70450; 72170; 90471; 90715; 99284; J2001; J3490

== ENCOUNTER → 2017-11-13 | Outpatient (CLI) | payer OTHER, MEDICAID ==
[~2017-11-13] MED LIST changes: -POTA10TA34 PO; +POTA1TAB61 PO
[2017-11-13 09:24] LABS: Basophils # (auto) 0.1 uL; Basophils % (auto) 0.9 % (0.0-2.0); Eosinophils # (auto) 0.3 uL; Hematocrit 33.7 % (36.0-46.0); Hemoglobin 10.7 g/dL (12.2-16.2); Lymphocytes # (auto) 1.7 uL; Lymphocytes % (auto) 18.1 % (10.0-50.0); Mean Corpuscular Hgb Conc. 31.8 g/dL (32.0-36.0); Mean Corpuscular Volume 88.3 fL (80.0-100.0); Monocytes % (auto) 10.5 % (0.0-12.0); Neutrophils # (auto) 6.4 uL; Neutrophils % (auto) 67.5 % (37.0-80.0); Platelet Count (auto) 276 10^3/uL (140-450); Red Blood Cells 3.82 10^6/uL (4.0-5.20); Red Cell Distribution Width 14.7 % (11.8-14.3); White Blood Cell 9.4 10^3/uL (4.4-10.8)
== END | disposition home or self-care (01) ==
LOC: LAB 08:42
PROVIDERS: ATTEND Family Medicine
DX: D64.9 Anemia, unspecified (principal); I50.9 Heart failure, unspecified
CPT/HCPCS: 36415; 85025

== ENCOUNTER → 2018-06-29 | Outpatient (CLI) | payer OTHER, MEDICAID ==
[~2018-06-29] MED LIST changes: +FURO20TA GT; +LIDO5DIS21 TOP; +SULF400T11 PO
[2018-06-29 11:03] LABS: Basophils # (auto) 0.1 uL; Basophils % (auto) 1.1 % (0.0-2.0); Eosinophils # (auto) 0.3 uL; Eosinophils % (auto) 2.9 % (0.0-7.0); Hematocrit 37.6 % (36.0-46.0); Hemoglobin 11.9 g/dL (12.2-16.2); Lymphocytes # (auto) 1.5 uL; Lymphocytes % (auto) 17.1 % (10.0-50.0); Mean Corpuscular Hemoglobin 28.1 pg (28.0-32.0); Mean Corpuscular Hgb Conc. 31.6 g/dL (32.0-36.0); Monocytes # (auto) 0.8 uL; Monocytes % (auto) 9.5 % (0.0-12.0); Neutrophils # (auto) 6.2 uL; Neutrophils % (auto) 69.4 % (37.0-80.0); Nucleated Red Blood Cells % 0.1 %; Platelet Count (auto) 249 10^3/uL (140-450); Red Blood Cells 4.22 10^6/uL (4.0-5.20); Red Cell Distribution Width 15.4 % (11.8-14.3); White Blood Cell 8.9 10^3/uL (4.4-10.8)
[2018-06-29 11:27] LABS: Urine Bacteria NONE SEEN /hpf (None Seen); Urine Blood TRACE /uL (Negative); Urine Specific Gravity 1.015 (1.001-1.035); Urine WBC 189 /hpf (0 - 5)
[2018-06-29 11:33] LABS: Albumin 3.5 g/dL (3.4-5.0); Potassium 4.2 mmol/L (3.5-5.1)
[2018-06-29 11:40] LABS: BUN/Creatinine Ratio 18.9; Bilirubin, Total 0.4 mg/dL (0.2-1.0); CRP High Sensitivity 0.35 mg/dL (< 0.3); Calcium 9.3 mg/dL (8.5-10.1); Total Protein 6.9 g/dL (6.4-8.2)
== END | disposition home or self-care (01) ==
LOC: LAB 09:38
PROVIDERS: ATTEND Family Medicine
DX: E55.9 Vitamin D deficiency, unspecified (principal); I10 Essential (primary) hypertension; E78.2 Mixed hyperlipidemia; M05.79 Rheumatoid arthritis with rheumatoid factor of multiple sites without organ or systems involvement; F41.9 Anxiety disorder, unspecified; J44.9 Chronic obstructive pulmonary disease, unspecified; E03.9 Hypothyroidism, unspecified
CPT/HCPCS: 36415; 80053; 80061; 81001; 82306; 82607; 83036; 83615; 84443; 85025; 85652; 86141

== ENCOUNTER 2018-10-01 12:00 | Inpatient (IN) | payer MEDICARE, MEDICAID ==
[~2018-10-01] VITALS: Ht 160 cm; Wt 93.0 kg
[~2018-10-01 12:00] MED LIST changes: -ALPR0.25 PO; +ALPR0.5T7 PO; +CALC-440 PO; +CHOL20007 PO; -FEXO-42 PO; -FLUT100M7 IN; +FLUT500M2 INH; -FURO20TA GT; +FURO20TA PO; +LEVO137T3 PO; -LEVO50TA61 PO; -POTA1TAB61 PO; +POTA20TA53 PO; +PRE5T PO; -PRED-188 PO; -SENN-58 OR; +SENN-58 PO; -SULF400T11 PO
[2018-10-01] MEDS ORDERED: SODIUM CHLORIDE 0.9% 500 ML IVB ONE (12:03)
[2018-10-01] MEDS ORDERED: SODIUM CHLORIDE 0.9% 1,000 ML IV ONE (12:07)
[2018-10-01] MEDS ORDERED: ONDANSETRON HCL 4 MG/2 ML VIAL IV ONE (12:15)
[2018-10-01] MEDS ORDERED: ACETAMINOPHEN 325 MG TAB PO ONE (12:15)
[2018-10-01 13:14] LABS: Basophils # (auto) 0.2 uL; Basophils % (auto) 0.8 % (0.0-2.0); Eosinophils # (auto) 0.1 uL; Eosinophils % (auto) 0.3 % (0.0-7.0); Hematocrit 32.9 % (36.0-46.0); Hemoglobin 10.6 g/dL (12.2-16.2); Lymphocytes # (auto) 0.8 uL; Lymphocytes % (auto) 3.5 % (10.0-50.0); Mean Corpuscular Hemoglobin 28.4 pg (28.0-32.0); Mean Corpuscular Hgb Conc. 32.3 g/dL (32.0-36.0); Monocytes # (auto) 1.8 uL; Monocytes % (auto) 8.2 % (0.0-12.0); Neutrophils # (auto) 19.1 uL; Neutrophils % (auto) 87.2 % (37.0-80.0); Nucleated Red Blood Cells % 0.1 %; Platelet Count (auto) 382 10^3/uL (140-450); Red Blood Cells 3.74 10^6/uL (4.0-5.20); Red Cell Distribution Width 15.7 % (11.8-14.3); White Blood Cell 21.9 10^3/uL (4.4-10.8)
[2018-10-01 13:18] LABS: Alanine Aminotransferase 24 U/L (13-56); Albumin 2.9 g/dL (3.4-5.0); Anion Gap 11 (5-15); Aspartate Aminotransferase 25 U/L (15-37); BUN/Creatinine Ratio 30.6; Blood Urea Nitrogen 59 mg/dL (7-18); Calcium 8.8 mg/dL (8.5-10.1); Carbon Dioxide 31 mmol/L (21-32); Chloride 98 mmol/L (98-107); GFR African American 33 mL/min; GFR Non-African American 27 mL/min; Glucose 171 mg/dL (74-106); Lipase 101 U/L (73-393); Potassium 3.7 mmol/L (3.5-5.1); Sodium 140 mmol/L (136-145)
[2018-10-01 13:21] LABS: Alkaline Phosphatase 119 U/L (45-117); Bilirubin, Total 0.5 mg/dL (0.2-1.0); Magnesium 2.8 mg/dL (1.6-2.6); Total Protein 7.3 g/dL (6.4-8.2)
[2018-10-01 13:33] LABS: INR 1.01 (0.9-1.15); Partial Thromboplastin Time 25.8 sec (23.64-32.05)
[2018-10-01 13:54] LABS: Urine Bacteria NONE SEEN /hpf (None Seen); Urine Blood 1+ /uL (Negative); Urine Specific Gravity 1.013 (1.001-1.035); Urine WBC 2026 /hpf (0 - 5); Urine WBC Clumps PRESENT /hpf (None Seen)
[2018-10-01] MEDS ORDERED: ERTAPENEM SOD INJ 1 GM in SODIUM CHL 0.9% 50 ML IV ONE (14:15)
[2018-10-01] MEDS ORDERED: ACETAMINOPHEN 500 MG TAB PO PRN (16:45)
[2018-10-01] MEDS ORDERED: IPRATROPIUM BROM 0.5 MG/2.5ML INH SOL NEB PRN (16:45)
[2018-10-01] MEDS ORDERED: ALBUTEROL SULF 2.5 MG/0.5ML(0.5%) NEB SOLN NEB PRN (16:45)
[2018-10-01] MEDS ORDERED: MORPHINE SULF INJ 2 MG/ML SYRINGE 1ML IV PRN (16:45)
[2018-10-01] MEDS ORDERED: NITROGLYCERIN 0.4 MG SL TAB SL PRN (16:45)
[2018-10-01] MEDS ORDERED: DEXTROSE (50%) 50ML SYRG IV PRN (17:00)
[2018-10-01] MEDS: SODIUM CHLORIDE 0.9% 1,000 ML IV SCH (17:09)
[2018-10-01] MEDS: MORPHINE SULF INJ 2 MG/ML SYRINGE 1ML IV PRN ×2 (17:14→22:33)
[2018-10-01] MEDS: ACCU-CHEK COMFORT CURVE STRIP VI SCH ×2 (17:20→21:29)
[2018-10-01] MEDS: InsuLIN REG 1unit/0.01ml Soln (100units/ml) SC SCH ×2 (17:20→21:29)
--- NOTE | 2018-10-01 19:20 | NUR ---
Respiratory note: PT ASSESSED FOR PRN MED NEB TX. HR 83, RR 14, SPO2 100% ON 3.5 L NC, BS CLEAR/DIMINISHED. NO SIGNS OF ANY RESPIRATORY DISTRESS NOTED. ADVISED PT TO CALL IF TX IS NEEDED.
--- NOTE | 2018-10-01 19:33 | NUR ---
Telemetry admit from ER CARMEN HA admitted to Telemetry unit after SBAR received. Patient oriented to Breana zhao RN, unit, room, bed, and unit policies regarding patient care and visiting hours. Patient now on continuous telemetry monitoring, tele box # 9 and telemetry reading on arrival to unit is SR 92. Patient placed on bedside oxygen, weighed by bedscale and encouraged to call if they need something. All questions and concerns addressed, patient verbalized understanding. Note: Came per stretcher awake alert oriented x 4,not in resp.distress, placed in the bed comfortably,vital signs checked.
[2018-10-01 19:38] VITALS: BP 108/55
--- NOTE | 2018-10-01 19:59 | NUR ---
MRSA NASAL SWAB SAMPLE SENT TO LAB
[2018-10-01 20:00] VITALS: BP 148/64
--- NOTE | 2018-10-01 20:00 | NUR ---
UNABLE TO DO MED REC, PATIENT DOES NOT KNOW EXACT NAMES AND DOSAGES OF HER HOME MEDS. SHE CALLED HER DAUGHTER TO BRING THE LIST TOMORROW
[2018-10-01] MEDS: GABAPENTIN 300 MG CAP PO SCH (21:28)
[2018-10-01] MEDS: FERROUS SULFATE 325 MG TAB PO SCH (21:28)
[2018-10-01] MEDS: TEMAZEPAM 15 MG CAP PO SCH (21:28)
[2018-10-01] MEDS: DOCUSATE SOD 100 MG CAP PO SCH (21:29)
[2018-10-01 22:00] VITALS: BP 148/64
--- NOTE | 2018-10-01 22:00 | NUR ---
Picture of the back(recently operated in [facility])last month taken.
--- NOTE | 2018-10-02 00:54 | NUR ---
Paged hospitalist Luis Hofffor blood culture positive for gram negative daniela, awaiting reply.
[2018-10-02] MEDS: SODIUM CHLORIDE 0.9% 1,000 ML IV SCH ×3 (00:59→22:50)
--- NOTE | 2018-10-02 01:08 | NUR ---
Mare Smith responded from the paged with order for vancomycin per pharmacy.
[2018-10-02] MEDS ORDERED: VANCOMYCIN PER PHARMACY 0 MG IV SCH (01:15)
--- NOTE | 2018-10-02 01:37 | NUR ---
Urine for culture sent to lab.
[2018-10-02] MEDS: HYDROcodone-ACET 5/325MG TAB PO PRN (01:43)
[2018-10-02] MEDS ORDERED: VANCOMYCIN 1GM/250ML 250 ML IV ONE (01:45)
[2018-10-02] MEDS: MORPHINE SULF INJ 2 MG/ML SYRINGE 1ML IV PRN ×3 (04:40→19:49)
[2018-10-02 05:00] VITALS: BP 148/70
[2018-10-02] MEDS: GABAPENTIN 300 MG CAP PO SCH ×3 (05:56→22:52)
[2018-10-02] MEDS: InsuLIN REG 1unit/0.01ml Soln (100units/ml) SC SCH ×4 (05:57→22:00)
[2018-10-02] MEDS: ACCU-CHEK COMFORT CURVE STRIP VI SCH ×4 (05:57→22:49)
--- NOTE | 2018-10-02 06:28 | NUR ---
Wound swab in the back sent to lab. for c/s,g/s.pus noted in the surgical incision site.
[2018-10-02 06:51] LABS: Basophils # (auto) 0 uL; Basophils % (auto) 0.2 % (0.0-2.0); Eosinophils # (auto) 0 uL; Eosinophils % (auto) 0.2 % (0.0-7.0); Hematocrit 32.9 % (36.0-46.0); Hemoglobin 10.4 g/dL (12.2-16.2); Lymphocytes # (auto) 0.7 uL; Lymphocytes % (auto) 3.8 % (10.0-50.0); Mean Corpuscular Hemoglobin 28.5 pg (28.0-32.0); Mean Corpuscular Hgb Conc. 31.8 g/dL (32.0-36.0); Mean Corpuscular Volume 89.6 fL (80.0-100.0); Monocytes # (auto) 1.3 uL; Monocytes % (auto) 6.8 % (0.0-12.0); Neutrophils # (auto) 16.5 uL; Nucleated Red Blood Cells % 0.1 %; Platelet Count (auto) 333 10^3/uL (140-450); Red Blood Cells 3.67 10^6/uL (4.0-5.20); Red Cell Distribution Width 15.5 % (11.8-14.3); White Blood Cell 18.6 10^3/uL (4.4-10.8)
--- NOTE | 2018-10-02 07:09 | NUR ---
Report given to Dane Larson, patient is resting no distress.
[2018-10-02 07:14] LABS: Anion Gap 12 (5-15); BUN/Creatinine Ratio 27.5; Blood Urea Nitrogen 47 mg/dL (7-18); Calcium 8.6 mg/dL (8.5-10.1); Carbon Dioxide 29 mmol/L (21-32); Chloride 100 mmol/L (98-107); GFR African American 38 mL/min; GFR Non-African American 31 mL/min; Glucose 140 mg/dL (74-106); Potassium 3.7 mmol/L (3.5-5.1); Sodium 141 mmol/L (136-145)
[2018-10-02 08:00] VITALS: BP 147/70
--- NOTE | 2018-10-02 08:00 | NUR ---
PATIENT HAVING CHILLS. DENIES ANY PAIN AT THIS TIME.
[2018-10-02] MEDS: cefTRIAXone 1GM/50ML D5W 50 ML IV SCH (08:30)
--- NOTE | 2018-10-02 08:40 | NUR ---
Respiratory note: PT ASSESSED FOR PRN MEDNEB TX. NO RESPIRATORY DISTRESS NOTED. TX NOT INDICATED AT THIS TIME. SPO2 93% ON 2L NC HR 107 RR 20. B/S DIMINISHED. PT AWARE TO HAVE RT PAGED IF THEY BECOME SOB.
--- NOTE | 2018-10-02 11:00 | NUR ---
PT REFUSED TREATMENT. DAUGHTER PRESENT.
[2018-10-02] MEDS: FAMOTIDINE 20 MG TAB PO SCH (11:25)
[2018-10-02] MEDS: DOCUSATE SOD 100 MG CAP PO SCH ×2 (11:26→22:52)
[2018-10-02] MEDS: DULoxetine HCL 30 MG CAP PO SCH (11:26)
[2018-10-02] MEDS: FERROUS SULFATE 325 MG TAB PO SCH ×2 (11:26→22:53)
[2018-10-02] MEDS: FOLIC ACID 1 MG TAB PO SCH (11:26)
--- NOTE | 2018-10-02 12:00 | NUR ---
DAUGHTER AT BEDSIDE. REQUESTING PICC LINE FOR MID LINE. SHE DOES NOT WANT THE PATIENT POKED ANY MORE SHE SAID THE PATIENT HAS A VERY HARD TIME KEEPING IV ACCESS. SHE SAID THE ER STAFF TOLD HER THEY COULD PUT A PICC LINE YESTERDAY
--- NOTE | 2018-10-02 12:28 | NUR ---
NUTRITION CONSULT/ASSESSMENT NOTES Please refer to link notes of nutrition screen form filed under the intervention section of the plan of care for further details. Est. Needs: 1350 kcal to 1800 kcal (15-20 kcal/kgBW), 52 gms to 62 gms pro (1.0-1.2 gms/kgBW). Will continue to monitor pertinent labs and reassess nutrient need prn Thank you for this consult. Addendum: 10/02/18 at [address] Amended: Links added.
--- NOTE | 2018-10-02 12:44 | NUR ---
WOUND CARE NOTE: Wound care in to see patient per wound care request regarding lower back wound that are noted present on admission. Bedside nurse took photograph of patient's wound upon admission for reference. Patient is 73 y/o female with admitting diagnosis of Sepsis. Patient has history of Arthritis, CAD, CHF, COPD,Depression, high lipids, Htn, thyroid, UTI. Patient is resting in bed in Rm. 246B. She's awake, alert and oriented. Patient is in no stated pain at this time however mild pain noted upon turning using So Jo Faces Pain Scale. She's able to assist with turning and repositioning. Her current Song score is 17. Skin/wound assessment done with the assistance of patient's nurse, JENNIFER Nevarez. Patient's lower back noted with 7x0.5cm incision from recent lumbar spinal surgery at [facility]. Wound is red, pale pink with yellow slough, scant serous drainage noted, no odor noted. Wound culture specimen reported sent to lab for processing. Cleansed wound with NS, patted dry with gauze,applied Thera honey gel and covered with Primapore dressing. Patient has scant leaking of urine. Odalys care given and applied Barrier cream. No pressure injury noted. Patient tolerated skin examination well. Patient's education given regarding skin protection measures, verbalized understanding. Repositioned for comfort facing her Rt side, redistributed pressure points with pillows. Bed in low position, call soriano within reach, all safety precautions in placed. RECOMMENDATION: BID/PRN cleaning and application of Barrier cream to sacral/buttocks as preventative, EOD/PRN dressing change to lower back wound per MD order, Dietary consult, frequent turning and repositioning schedule as condition permits, redistribute pressure points with pillows, elevate heels on pillows, continue monitoring by wound care while patient is hospitalized. Addendum: 10/02/18 at 1759 by Rosalind Powers RN Amended: Links added.
[2018-10-02 13:00] VITALS: BP 105/49
--- NOTE | 2018-10-02 16:30 | NUR ---
Midline Placement: Patient educated on need for midline placement. All risks and benefits explained and all questions and concerns addresses prior to procedure. 18g/10cm midline inserted via left cephalic vein using Ultrasound. Sterile technique utilized. Blood return obtained from the lumen and flushed easily with NS using proper technique. Midline secured with saline lock; biodisc and occlusive dressing applied. Primary RN notified. Midline lot # [id number]. x1 attempt
[2018-10-02 17:00] VITALS: BP 101/71
--- NOTE | 2018-10-02 18:15 | NUR ---
Respiratory note: ASSESSED PT FOR PRN MED NEB AT THIS TIME, PT DENIES SOB AT THIS TIME, NO RESP DISTRESS NOTED, NO TX INDICATED. PULSE OX 93% ON 2L NC, HR 87, RR 18, BILATERAL BS DECREASED.
--- NOTE | 2018-10-02 19:30 | NUR ---
Opening Shift Note Assumed care of patient, awake and alert. No S/S of distress/SOB or pain. Instructed on POC and to call for assist PRN, will continue to monitor for changes Q1hr and PRN.
[2018-10-02] MEDS: ONDANSETRON HCL 4 MG/2 ML VIAL IV PRN (21:32)
[2018-10-02 22:00] VITALS: BP 152/78
[2018-10-02] MEDS: ACETAMINOPHEN 500 MG TAB PO PRN (22:48)
[2018-10-02] MEDS: TEMAZEPAM 15 MG CAP PO SCH (22:48)
[2018-10-03 04:43] VITALS: BP 111/59
[2018-10-03] MEDS: MORPHINE SULF INJ 2 MG/ML SYRINGE 1ML IV PRN ×3 (06:43→21:40)
[2018-10-03] MEDS: ONDANSETRON HCL 4 MG/2 ML VIAL IV PRN ×2 (06:43→21:39)
[2018-10-03] MEDS: ACCU-CHEK COMFORT CURVE STRIP VI SCH ×4 (06:49→22:31)
[2018-10-03] MEDS: InsuLIN REG 1unit/0.01ml Soln (100units/ml) SC SCH ×4 (07:00→22:32)
--- NOTE | 2018-10-03 08:00 | NUR ---
DAUGHTER AT BEDSIDE
--- NOTE | 2018-10-03 08:00 | NUR ---
AWAKE ALERT STATES SHE FEELS BETTER TODAY. DENIES ANY PAIN NO FEVER. BREAKFAST TRAY SERVED.
[2018-10-03] MEDS: SODIUM CHLORIDE 0.9% 1,000 ML IV SCH ×2 (08:48→18:44)
[2018-10-03] MEDS: cefTRIAXone 1GM/50ML D5W 50 ML IV SCH (08:56)
[2018-10-03 09:00] VITALS: BP 133/69
--- NOTE | 2018-10-03 09:20 | NUR ---
DR CERON AT BEDSIDE DISCUSSED PLAN OF CARE WITH PATIENT AND DAUGHTER.
--- NOTE | 2018-10-03 09:27 | NUR ---
PAGED PHYSICAL THERAPY TO GET PATIENT OUT OF BED.
[2018-10-03] MEDS: FERROUS SULFATE 325 MG TAB PO SCH ×2 (10:04→22:24)
[2018-10-03] MEDS: GABAPENTIN 300 MG CAP PO SCH ×2 (10:05→22:25)
[2018-10-03] MEDS: DOCUSATE SOD 100 MG CAP PO SCH ×2 (10:05→22:25)
[2018-10-03] MEDS: FOLIC ACID 1 MG TAB PO SCH (10:05)
[2018-10-03] MEDS: FAMOTIDINE 20 MG TAB PO SCH (10:05)
[2018-10-03] MEDS: DULoxetine HCL 30 MG CAP PO SCH (10:05)
[2018-10-03] MEDS ORDERED: VANCOMYCIN 1GM/250ML 250 ML IV ONE (10:45)
--- NOTE | 2018-10-03 12:47 | NUR ---
RT NOTE: PRN BREATHING TX. NOT INDICATED AT THIS TIME. NO S/S OF RESPIRATORY DISTRESS NOTED. PT. HR. 127, RR 18, 96% 2L N/C. PT. AWARE TO NOTIFY RN IF BREATHING TX. IS INDICATED.
[2018-10-03 13:17] VITALS: BP 114/51
[2018-10-03] MEDS: LORazepam 0.5 MG TAB PO PRN (13:40)
[2018-10-03] MEDS: PIPERACILLIN-TAZOB 2.25GM 50 ML IV SCH ×2 (14:45→20:26)
[2018-10-03] MEDS: ACETAMINOPHEN 500 MG TAB PO PRN ×2 (16:25→23:20)
[2018-10-03 16:30] VITALS: BP 117/62
[2018-10-03] MEDS: BACLOFEN 10 MG TAB PO PRN (17:50)
--- NOTE | 2018-10-03 18:43 | NUR ---
PT CHECKED FOR PRN TX. TX IS NOT INDICATED AT THIS TIME. PT DENIES SOB. PT TO CALL IF TX NEEDED. HR 105 RR 20 POX 92% ON 2.5 LPM VIA NC. B/S DECREASED.
[2018-10-03 21:55] VITALS: BP 143/64
[2018-10-03] MEDS: TEMAZEPAM 15 MG CAP PO SCH (22:25)
[2018-10-04] MEDS: ONDANSETRON HCL 4 MG/2 ML VIAL IV PRN ×2 (03:15→10:18)
[2018-10-04] MEDS: MORPHINE SULF INJ 2 MG/ML SYRINGE 1ML IV PRN ×3 (03:15→15:16)
[2018-10-04] MEDS: PIPERACILLIN-TAZOB 2.25GM 50 ML IV SCH ×2 (03:15→08:07)
[2018-10-04] MEDS: SODIUM CHLORIDE 0.9% 1,000 ML IV SCH ×2 (04:55→15:15)
[2018-10-04 05:03] VITALS: BP 147/61
[2018-10-04] MEDS: ACETAMINOPHEN 500 MG TAB PO PRN (05:38)
[2018-10-04] MEDS: InsuLIN REG 1unit/0.01ml Soln (100units/ml) SC SCH ×4 (07:00→21:18)
[2018-10-04] MEDS: ACCU-CHEK COMFORT CURVE STRIP VI SCH ×4 (07:09→21:18)
--- NOTE | 2018-10-04 07:30 | NUR ---
Opening Shift Note Assumed care of patient, awake and alert. No S/S of distress/SOB or pain. Instructed on POC-continue IV antibiotics, work with physical therapy. Patient informed to call for assist PRN, will continue to monitor for changes Q1hr and PRN.
--- NOTE | 2018-10-04 08:25 | NUR ---
Respiratory note: ROUTINE PRN MN TX ASSESSMENT DONE HR 112, RR 24, POX 93% ON 2L/M NC, BREATH SOUNDS ARE CLEAR. NO SOB OR DISTRESS NOTED AT THIS TIME. PT WAS NOTIFY TO HAVE RT PAGE IF MN TX WAS NEEDED.
[2018-10-04 08:30] VITALS: BP 105/55
[2018-10-04 09:05] LABS: Anion Gap 9 (5-15); BUN/Creatinine Ratio 20.3; Blood Urea Nitrogen 27 mg/dL (7-18); Calcium 8.3 mg/dL (8.5-10.1); Carbon Dioxide 28 mmol/L (21-32); Chloride 103 mmol/L (98-107); GFR African American 51 mL/min; GFR Non-African American 42 mL/min; Glucose 107 mg/dL (74-106); Potassium 3.3 mmol/L (3.5-5.1); Sodium 140 mmol/L (136-145)
[2018-10-04 09:49] LABS: Basophils # (auto) 0.1 uL; Basophils % (auto) 0.8 % (0.0-2.0); Eosinophils # (auto) 0.3 uL; Lymphocytes # (auto) 0.6 uL; Monocytes # (auto) 1.1 uL; Red Cell Distribution Width 15.4 % (11.8-14.3)
[2018-10-04 09:52] LABS: Eosinophils % (auto) 2.6 % (0.0-7.0); Hemoglobin 8.2 g/dL (12.2-16.2); Lymphocytes % (auto) 5.3 % (10.0-50.0); Mean Corpuscular Hemoglobin 28.8 pg (28.0-32.0); Mean Corpuscular Hgb Conc. 32.6 g/dL (32.0-36.0); Mean Corpuscular Volume 88.5 fL (80.0-100.0); Monocytes % (auto) 9.9 % (0.0-12.0); Neutrophils # (auto) 8.9 uL; Neutrophils % (auto) 81.4 % (37.0-80.0); Platelet Count (auto) 221 10^3/uL (140-450); Red Blood Cells 2.83 10^6/uL (4.0-5.20)
[2018-10-04] MEDS: DOCUSATE SOD 100 MG CAP PO SCH ×2 (09:55→21:17)
[2018-10-04] MEDS: FOLIC ACID 1 MG TAB PO SCH (09:55)
[2018-10-04] MEDS: FERROUS SULFATE 325 MG TAB PO SCH ×2 (09:55→21:17)
[2018-10-04] MEDS: GABAPENTIN 300 MG CAP PO SCH ×2 (09:56→21:17)
[2018-10-04] MEDS: FAMOTIDINE 20 MG TAB PO SCH (09:56)
[2018-10-04] MEDS: DULoxetine HCL 30 MG CAP PO SCH (09:56)
[2018-10-04] MEDS: BACLOFEN 10 MG TAB PO PRN (10:19)
--- NOTE | 2018-10-04 11:15 | NUR ---
Dr. Steen informed during rounds of patient's status-had fever during noc shift, per night RN, lumbar spine wound s/p lumbar surgery has a lot of pus coming out. The site was cleaned this morning and new dressing placed. MD requested to see the wound. It is dry at this time when MD checked it. Also informed MD of patient's potassium level-3.3 today. Per MD, Lumbar spine CT needs to be done, potassium supplement of Potassium 20 meq oral now and then daily. MD will order 2 IV antibiotics-Meropenem and Rocephin.
[2018-10-04] MEDS ORDERED: MEROPENEM 500MG IVPB 50 ML IV ONE ×2 (11:30→12:00)
[2018-10-04] MEDS ORDERED: MEROPENEM 1GM IVPB 100 ML IV SCH (11:35)
[2018-10-04] MEDS ORDERED: POTASSIUM CHL 20 Meq TABLET PO ONE (11:45)
[2018-10-04] MEDS ORDERED: VANCOMYCIN 1GM/250ML 250 ML IV SCH (12:00)
[2018-10-04 12:30] VITALS: BP 114/65
[2018-10-04] MEDS ORDERED: cefTRIAXone 1GM/50ML D5W 50 ML IV ONE (13:30)
--- NOTE | 2018-10-04 13:30 | NUR ---
PT DECLINED P.T. TODAY.
[2018-10-04 17:24] VITALS: BP 116/73
--- NOTE | 2018-10-04 19:00 | NUR ---
Closing Note Patient is resting in bed, no complaints of pain at this time. Call light within reach and bed in lowest position. Care endorsed to night RN.
[2018-10-04] MEDS: HYDROcodone-ACET 5/325MG TAB PO PRN (19:53)
--- NOTE | 2018-10-04 19:53 | NUR ---
Opening Shift Note Assumed care of patient, awake and alert. No S/S of distress/SOB C/O back pain 5/10 Instructed on POC and to call for assist PRN, will continue to monitor for changes Q1hr and PRN.Medicated with one tab. [place] 5/325mg.p.o for pain as needed.Back dressing dry and intact.
[2018-10-04 20:49] VITALS: BP 116/73
[2018-10-04] MEDS: TEMAZEPAM 15 MG CAP PO SCH (21:18)
[2018-10-04 22:00] VITALS: BP 108/59
--- NOTE | 2018-10-04 22:33 | NUR ---
Respiratory note: ASSESSED PT FOR PRN MED NEB AT THIS TIME, PT SLEEPING AT THIS TIME, NO RESP DISTRESS NOTED, NO TX INDICATED, PULSE OX 97% ON 3LNC, HR 77, RR 20, BILATERAL BS CLEAR.
[2018-10-05] MEDS: SODIUM CHLORIDE 0.9% 1,000 ML IV SCH ×2 (00:19→14:28)
[2018-10-05] MEDS: HYDROcodone-ACET 5/325MG TAB PO PRN (01:08)
[2018-10-05] MEDS: LORazepam 0.5 MG TAB PO PRN (01:29)
[2018-10-05 05:00] VITALS: BP 163/75
[2018-10-05] MEDS: ACCU-CHEK COMFORT CURVE STRIP VI SCH ×4 (06:11→21:41)
[2018-10-05] MEDS: InsuLIN REG 1unit/0.01ml Soln (100units/ml) SC SCH ×4 (06:11→21:41)
--- NOTE | 2018-10-05 07:02 | NUR ---
Report given to Dane Hopkins ,patient is resting no distress.
[2018-10-05 08:00] VITALS: BP 147/87
[2018-10-05] MEDS ORDERED: cefTRIAXone 1GM/50ML D5W 50 ML IV SCH (09:00)
[2018-10-05] MEDS: GABAPENTIN 300 MG CAP PO SCH ×2 (09:36→21:40)
[2018-10-05] MEDS: DOCUSATE SOD 100 MG CAP PO SCH ×2 (09:36→21:40)
[2018-10-05] MEDS: FAMOTIDINE 20 MG TAB PO SCH ×2 (09:36→09:37)
[2018-10-05] MEDS: DULoxetine HCL 30 MG CAP PO SCH (09:36)
[2018-10-05] MEDS: FOLIC ACID 1 MG TAB PO SCH (09:36)
[2018-10-05] MEDS: FERROUS SULFATE 325 MG TAB PO SCH ×2 (09:36→21:40)
[2018-10-05] MEDS: POTASSIUM CHL 20 Meq TABLET PO SCH (09:37)
[2018-10-05] MEDS: MORPHINE SULF INJ 2 MG/ML SYRINGE 1ML IV PRN ×2 (09:47→18:55)
[2018-10-05] MEDS: BACLOFEN 10 MG TAB PO PRN ×2 (09:47→18:55)
[2018-10-05] MEDS: ONDANSETRON HCL 4 MG/2 ML VIAL IV PRN ×2 (09:47→18:54)
[2018-10-05] MEDS: MEROPENEM 1GM IVPB 100 ML IV SCH ×2 (09:48→21:40)
[2018-10-05] MEDS ORDERED: MEROPENEM 500MG IVPB 50 ML IV SCH ×2 (10:00)
--- NOTE | 2018-10-05 11:00 | NUR ---
Respiratory note: PATIENT ASSESSED FOR PRN MED-NEB TX, MEDICATION NOT INDICATED AT THIS TIME PATIENT DENIED NEED AND WAS SHOWING NO SIGNS ACUTE RESPIRATORY DISTRESS. PATIENT INSTRUCTED TO CALL FOR RT IF SHE FELT THE NEED FOR TX AT A LATER TIME. 97% 3LPM N/C
--- NOTE | 2018-10-05 11:26 | NUR ---
Nutrition Follow-up Notes Wt.: 91.6 kg Pt awake confused with no family but TRANSPORT AIDE by bedside. per pt records pt with UTI. pt is currently on CCHO 60 gm/meal diet with fair PO of avg 60% x 2 days per RN doc Est. Needs: 1350 kcal to 1800 kcal (15-20 kcal/kgBW), 52 gms to 62 gms pro (1.0-1.2 gms/kgBW). Will continue to monitor pertinent labs and reassess nutrient need prn Labs: BUUN 27 H, CREAT 1.33 H, GLU 107 H, CA 8.3 L, ALB 2.9 L. Skin: Song scale 16, mod risk, pt with incision on back per rescue instructor. GI: Pt has BM reported per rescue instructor. PES: Altered nutrition related lab values r/t acute/chronic medical condition aeb hyperglycemia, elev. renal labs, ALP and mod hypoalbuminemia Obesity r/t excessive PO intake aeb 174% IBW, BMI 35.5 kg/m2 and increased body adiposity Will continue to monitor PO intake, skin status, pertinent labs and weight trend. F/u in 3 to 5 days. Rec.: 1.) Consider Consistent Standard Carb: 60 gms/meal,Cardiac: 2 gms Na, Low Chol, Low Fat diet 2.) If Albumin level continues trending down with improved renal labs, consider Prostat 1 pkt BID. 3.) Consider daily MVI with minerals and Asc acid 500 mgs BID. 4.) Continue close supervision with meals 5.) Refer to RD for further nutrition education and weight monitoring upon discharged. 5.) Continue current plan of care.
[2018-10-05] MEDS ORDERED: cefTRIAXone 1GM/50ML D5W 50 ML IV ONE (11:45)
[2018-10-05 12:00] VITALS: BP 136/71
--- NOTE | 2018-10-05 13:30 | NUR ---
Called Dr. Steen informed that there is a result of the Lumbar spine CT. stated that he will look at the report himself.
[2018-10-05 17:00] VITALS: BP 128/67
--- NOTE | 2018-10-05 19:00 | NUR ---
Closing Note Assessed patient, as daughter called RN and stated that patient is confused and thinks that she is still in [place]. When I asked patient, she was able to say that she is in [facility], knows the current year and stated the names of her children. She stated she wanted to have her wheelchair because she wanted to sit in her wheelchair. Informed patient that tomorrow, she can work with physical therapy and then do that activity that she wanted. Care endorsed to night RN.
--- NOTE | 2018-10-05 19:35 | NUR ---
OPENING SHIFT NOTE RECEIVED REPORT FROM DAYSHIFT RN. PATIENT RESTING COMFORTABLY IN BED WITH EYES CLOSED. NO S/S OF DISTRESS OR SOB. NO PAIN NOTED OR REPORTED. PATIENT A/O X4, BEDREST. UPDATED PATIENT ON POC, VERBALIZED UNDERSTANDING. BED LOCKED IN LOW POSITION, CALL LIGHT WITHIN REACH. WILL CONTINUE TO MONITOR PATIENT Q1HR AND PRN.
--- NOTE | 2018-10-05 20:31 | NUR ---
ASSESSED PT @ THIS TIME FOR PRN MED NEB TX. PT IS RESTING COMFORTABLY IN BED. SHE STATES HER BREATHING IS DOING FINE. NO DISTRESS NOTED. CURRENTLY ON A 3L NC SPO2 96%, HR 106, RR 18 AND BS ARE DIMINISHED T/O. SHE IS AWARE TO CALL IF SHE FEEL SOB.
[2018-10-05 21:00] VITALS: BP 152/84
[2018-10-05] MEDS: TEMAZEPAM 15 MG CAP PO SCH (21:41)
[2018-10-06 05:00] VITALS: BP 160/92
[2018-10-06] MEDS: InsuLIN REG 1unit/0.01ml Soln (100units/ml) SC SCH ×4 (06:53→22:00)
[2018-10-06] MEDS: SODIUM CHLORIDE 0.9% 1,000 ML IV SCH ×2 (06:53→14:55)
[2018-10-06] MEDS: ACCU-CHEK COMFORT CURVE STRIP VI SCH ×4 (06:53→22:04)
[2018-10-06] MEDS: MORPHINE SULF INJ 2 MG/ML SYRINGE 1ML IV PRN ×3 (06:54→21:04)
[2018-10-06 09:00] VITALS: BP 156/93
[2018-10-06] MEDS ORDERED: cefTRIAXone 1GM/50ML D5W 50 ML IV SCH (09:00)
--- NOTE | 2018-10-06 09:00 | NUR ---
PT SITTING IN A CHAIR. C/O PAIN ON HER BACK AND WANTS TO GET BACK IN THE BED. P.T. PAGED TO ASSIST PT.
[2018-10-06] MEDS: MEROPENEM 1GM IVPB 100 ML IV SCH ×2 (09:28→22:03)
[2018-10-06] MEDS: FOLIC ACID 1 MG TAB PO SCH (09:29)
[2018-10-06] MEDS: DOCUSATE SOD 100 MG CAP PO SCH ×2 (09:29→22:03)
[2018-10-06] MEDS: BACLOFEN 10 MG TAB PO PRN (09:29)
[2018-10-06] MEDS: ONDANSETRON HCL 4 MG/2 ML VIAL IV PRN ×2 (09:29→10:57)
[2018-10-06] MEDS: POTASSIUM CHL 20 Meq TABLET PO SCH (09:29)
[2018-10-06] MEDS: DULoxetine HCL 30 MG CAP PO SCH (09:29)
[2018-10-06] MEDS: FERROUS SULFATE 325 MG TAB PO SCH ×2 (09:30→22:03)
[2018-10-06] MEDS: GABAPENTIN 300 MG CAP PO SCH ×2 (09:30→22:03)
[2018-10-06] MEDS: HYDROcodone-ACET 5/325MG TAB PO PRN ×2 (09:30→16:32)
[2018-10-06] MEDS: FAMOTIDINE 20 MG TAB PO SCH ×2 (09:31→10:00)
--- NOTE | 2018-10-06 09:33 | NUR ---
RT NOTE: WENT TO PTS ROOM TO ASSESS FOR PRN BREATHING TX, PT SITTING UP IN CHAIR, NO S/S OF SOB. HR- 130, SPO2 94% ON 3L NC, RR 18, BREATH SOUNDS CLEAR. PT AWARE TO CALL IF HAVING ANY SOB. WILL CONTINUE TO MONITOR PT.
--- NOTE | 2018-10-06 10:58 | NUR ---
MILL LABOR SUPERVISOR: MAINE [phone]. DAUGHTER, MAINE AT BEDSIDE
--- NOTE | 2018-10-06 12:30 | NUR ---
SPOKE TO PT'S DAUGHTER, MAINE. SHE'S AWARE OF MD'S PLAN TO DC PT BACK TO SNF TOMORROW.
[2018-10-06 13:12] VITALS: BP 134/97
[2018-10-06 15:36] LABS: Basophils # (auto) 0.1 uL; Basophils % (auto) 0.4 % (0.0-2.0); Eosinophils # (auto) 0.2 uL; Eosinophils % (auto) 1.7 % (0.0-7.0); Hemoglobin 9.5 g/dL (12.2-16.2); Lymphocytes # (auto) 0.9 uL; Lymphocytes % (auto) 6.2 % (10.0-50.0); Mean Corpuscular Hgb Conc. 31.5 g/dL (32.0-36.0); Mean Corpuscular Volume 88.9 fL (80.0-100.0); Monocytes # (auto) 1.6 uL; Monocytes % (auto) 11.5 % (0.0-12.0); Neutrophils # (auto) 11.4 uL; Neutrophils % (auto) 80.2 % (37.0-80.0); Platelet Count (auto) 289 10^3/uL (140-450); Red Blood Cells 3.38 10^6/uL (4.0-5.20); Red Cell Distribution Width 15.7 % (11.8-14.3); White Blood Cell 14.2 10^3/uL (4.4-10.8)
[2018-10-06 15:56] LABS: BUN/Creatinine Ratio 18.4; Calcium 8.9 mg/dL (8.5-10.1); Potassium 3.8 mmol/L (3.5-5.1)
[2018-10-06 17:36] VITALS: BP 154/70
--- NOTE | 2018-10-06 18:30 | NUR ---
WOUND CARE BACK WOUND CLEANED AND DRESSED ORDERED. PT TOLERATED WELL. NO DISTRESS NOTED.
--- NOTE | 2018-10-06 19:05 | NUR ---
Respiratory note: ASSESSED PT FOR PRN MED NEB AT THIS TIME, PT SLEEPING AT THIS TIME, NO RESP DISTRESS NOTED, NO TX INDICATED. PULSE OX 92% ON 3L NC, HR 109, RR 20, BILATERAL BS DECREASED.
--- NOTE | 2018-10-06 19:36 | NUR ---
CLOSING NOTES PT RESTING IN BED. NO DISTRESS NOTED. REPORT GIVEN TO MICHAEL TENA RN.
[2018-10-06] MEDS: TEMAZEPAM 15 MG CAP PO SCH (22:04)
[2018-10-06 22:08] VITALS: BP 122/87
[2018-10-07] MEDS: SODIUM CHLORIDE 0.9% 1,000 ML IV SCH ×2 (02:45→17:35)
[2018-10-07] MEDS: MORPHINE SULF INJ 2 MG/ML SYRINGE 1ML IV PRN ×3 (02:50→20:43)
[2018-10-07 05:17] VITALS: BP 160/87
[2018-10-07] MEDS: HYDROcodone-ACET 5/325MG TAB PO PRN ×3 (05:23→18:08)
[2018-10-07] MEDS: ACCU-CHEK COMFORT CURVE STRIP VI SCH ×4 (06:30→22:00)
[2018-10-07] MEDS: InsuLIN REG 1unit/0.01ml Soln (100units/ml) SC SCH ×4 (06:30→22:00)
[2018-10-07 07:31] LABS: Hematocrit 25.2 % (36.0-46.0); White Blood Cell 11.4 10^3/uL (4.4-10.8)
[2018-10-07 07:37] LABS: BUN/Creatinine Ratio 19.4; Calcium 8.2 mg/dL (8.5-10.1); Potassium 3.6 mmol/L (3.5-5.1)
[2018-10-07 07:40] LABS: Hemoglobin 8.2 g/dL (12.2-16.2); Mean Corpuscular Hemoglobin 28.4 pg (28.0-32.0); Mean Corpuscular Hgb Conc. 32.4 g/dL (32.0-36.0); Mean Corpuscular Volume 87.8 fL (80.0-100.0); Platelet Count (auto) 289 10^3/uL (140-450); Red Blood Cells 2.87 10^6/uL (4.0-5.20); Red Cell Distribution Width 15.3 % (11.8-14.3)
[2018-10-07] MEDS ORDERED: MEROPENEM 1GM IVPB 100 ML IV SCH (08:00)
--- NOTE | 2018-10-07 08:00 | NUR ---
ASSESSMENT NOTE PATIENT IS ALERT ORIENTED X4, RESTING IN BED COMFORTABLY, ON HER RT SIDE, PATIENT GET EMOTIONALLY, AND CRY FOR EVERYTHING, FEELING DOWN SINCE SHE IS A WAY FROM HER FAMILY HOME IN ORDER TO GET HER FULL RECOVERY, REPOSITION PATIENT CAREFULLY, HEAD OF BED ELEVATED, CASE CATHETER TO GRAVITY, CALL LIGHT WITHIN REACH.
[2018-10-07 08:13] LABS: Basophils % (manual) 0 (0.0-2.0); Blast Cells 0; Metamyelocytes % 0; Myelocytes % 0; Promyelocytes % 0; Reactive Lymphocytes 0
[2018-10-07 09:00] VITALS: BP 148/68
[2018-10-07] MEDS: FAMOTIDINE 20 MG TAB PO SCH (09:18)
[2018-10-07] MEDS: GABAPENTIN 300 MG CAP PO SCH ×2 (09:18→22:28)
[2018-10-07] MEDS: POTASSIUM CHL 20 Meq TABLET PO SCH (09:19)
[2018-10-07] MEDS: FERROUS SULFATE 325 MG TAB PO SCH ×2 (09:19→22:28)
[2018-10-07] MEDS: FOLIC ACID 1 MG TAB PO SCH (09:19)
[2018-10-07] MEDS: DOCUSATE SOD 100 MG CAP PO SCH ×2 (09:19→22:28)
--- NOTE | 2018-10-07 10:00 | NUR ---
FAMILY PATIENT'S DAUGHTER AT BED SIDE
[2018-10-07] MEDS ORDERED: DULoxetine HCL 30 MG CAP PO ONE (10:53)
--- NOTE | 2018-10-07 11:06 | NUR ---
BM PATIENT STATED < I HAVEN'T HAVE A BOWEL MOVEMENT SINCE I CAME HERE> DR CERON MADE AWARE, NEW ORDERS OBTAIN LACTULOSE X1, ALSO DR CERON INFORM ME THAT PATIENT WILL BE DISCHARGE ON LEVAQUIN, NEW ORDERS FOR LEVAQUIN X1 OBTAIN
[2018-10-07] MEDS ORDERED: LACTULOSE 20Gm/30ML SOLN PO ONE (11:15)
[2018-10-07] MEDS ORDERED: LEVOFLOXACIN 500MG 100 ML IV ONE (11:15)
[2018-10-07 11:45] LABS: Band Neutrophils % (manual) 11; Eosinophils % (manual) 3 (0-7); Lymphocytes % (manual) 8 (10.0-50.0); Monocytes % (manual) 14 (0-12)
[2018-10-07] MEDS: DULoxetine HCL 30 MG CAP PO SCH (11:45)
--- NOTE | 2018-10-07 12:00 | NUR ---
EQUIPMENT MAN CARLOS Rene MADE AWARE OF PATIENT TRANSFER BACK TO SNF, SAID THAT THEY HAVE TO WOK ON IT
[2018-10-07 13:00] VITALS: BP 163/89
--- NOTE | 2018-10-07 15:18 | NUR ---
BM PT HAS LARGE SOFT BM,KEPT DRY AND CLEAN
[2018-10-07 17:00] VITALS: BP 151/89
--- NOTE | 2018-10-07 17:32 | NUR ---
COTTON FACTOR CARLOS Rene IS HERE FOLLOWING UP WITH HER REGARDING THE PATIENT'S TRANSFER , INFORM ME THAT THEY STILL WORKING ON IT, AND IT'S NOT GOING TO HAPPEN TODAY
--- NOTE | 2018-10-07 17:34 | NUR ---
PAGE DR CERON TO GIVE HIM THE TRANSFER UPDATE, WELDER SHIELDED METAL ARC SAID THAT SHE CAN NOT CALL HIM AFTER 5 PM
--- NOTE | 2018-10-07 17:36 | NUR ---
FAMILY LYNN PATIENT;S DAUGHTER CALLED, MADE AWARE THAT THE TRANSFER WILL BE DONE TOMORROW.
--- NOTE | 2018-10-07 18:00 | NUR ---
BM PT HAS 3 BM, KEPT DRY AND CLEAN
--- NOTE | 2018-10-07 18:35 | NUR ---
PATIENT CONTINUE STABLE, CONTINUE MONITORING
--- NOTE | 2018-10-07 19:40 | NUR ---
Opening Shift Note Assumed care of patient, awake and alert. No S/S of distress/SOB or pain. Instructed on POC and to call for assist PRN. Bed in lowest locked position, call light within reach, side rails up x2, fall precautions in place. Will continue to monitor for changes Q1hr and PRN.
[2018-10-07 22:11] VITALS: BP 155/89
[2018-10-07] MEDS: TEMAZEPAM 15 MG CAP PO SCH (22:29)
[2018-10-08] MEDS: HYDROcodone-ACET 5/325MG TAB PO PRN ×2 (01:19→09:40)
[2018-10-08] MEDS: BACLOFEN 10 MG TAB PO PRN ×3 (01:19→22:05)
[2018-10-08 05:11] VITALS: BP 156/86
[2018-10-08] MEDS: InsuLIN REG 1unit/0.01ml Soln (100units/ml) SC SCH ×4 (06:19→22:00)
[2018-10-08] MEDS: MORPHINE SULF INJ 2 MG/ML SYRINGE 1ML IV PRN ×2 (06:19→19:52)
[2018-10-08] MEDS: ACCU-CHEK COMFORT CURVE STRIP VI SCH ×4 (06:19→22:08)
[2018-10-08] MEDS: SODIUM CHLORIDE 0.9% 1,000 ML IV SCH ×2 (06:43→20:18)
--- NOTE | 2018-10-08 07:15 | NUR ---
Open Shift Note Received report on patient, awake and sitting up in bed. Patient shows no signs of distress or SOB at this time. Patient states they are ready to go back to [facility]. Educated patient that mental health social worker is working on ensuring she has a bed available. Patient verbalized understanding. Bed in lowest locked position, side rails up x2 and call light within reach. Will continue to monitor.
[2018-10-08 09:00] VITALS: BP 155/82
[2018-10-08] MEDS: LEVOFLOXACIN 500MG 100 ML IV SCH (09:47)
[2018-10-08] MEDS: DULoxetine HCL 30 MG CAP PO SCH (09:48)
[2018-10-08] MEDS: FAMOTIDINE 20 MG TAB PO SCH (09:48)
[2018-10-08] MEDS: DOCUSATE SOD 100 MG CAP PO SCH ×2 (09:48→22:00)
[2018-10-08] MEDS: POTASSIUM CHL 20 Meq TABLET PO SCH (09:48)
[2018-10-08] MEDS: FERROUS SULFATE 325 MG TAB PO SCH ×2 (09:49→22:01)
[2018-10-08] MEDS: FOLIC ACID 1 MG TAB PO SCH (09:49)
--- NOTE | 2018-10-08 10:28 | NUR ---
re-assessment Ss consult Pt DCD today back to [facility]. Order faxed to [facility] ph: [phone] fx: [phone]. Awaiting response from [facility]. Attempted to f/u this morning and Regino in admissions is in a meeting. Will call back in an hour. Addendum: 10/08/18 at 1031 by Adriana WHITMORE Amended: Links added.
[2018-10-08] MEDS ORDERED: LORazepam 2MG/ML-1ML VIAL IV ONE (11:15)
[2018-10-08 13:00] VITALS: BP 149/90
[2018-10-08] MEDS: GABAPENTIN 300 MG CAP PO SCH ×2 (13:36→22:01)
[2018-10-08] MEDS: ONDANSETRON HCL 4 MG/2 ML VIAL IV PRN (13:37)
--- NOTE | 2018-10-08 15:43 | NUR ---
Called Dr Steen-MRI Results Called Dr Steen to inform him of MRI results. Dr Steen stated to call the patient's daughter and ask her to be here at 0900 tomorrow to discuss POC and transfer back to [place]. Verbalized understanding.
--- NOTE | 2018-10-08 15:46 | NUR ---
Called Patient's Daughter Zenia Called patient's POA Zenia and updated her on patient's care and Dr Steen's request to be here at 0900 tomorrow. Zenia stated she is out of town but her other sister will be here tomorrow at 0900 and Zenia will be put on speaker phone.
[2018-10-08 17:00] VITALS: BP 148/99
--- NOTE | 2018-10-08 18:52 | NUR ---
Closing Note Patient asleep in bed, shows no signs of distress at this time. Bed in lowest locked position, side rails up x2 and call light within reach.
[2018-10-08 22:00] VITALS: BP 145/90
[2018-10-08] MEDS: TEMAZEPAM 15 MG CAP PO SCH (22:00)
[2018-10-09] MEDS: MORPHINE SULF INJ 2 MG/ML SYRINGE 1ML IV PRN ×4 (00:55→20:13)
[2018-10-09 05:32] VITALS: BP 153/86
--- NOTE | 2018-10-09 06:00 | NUR ---
DRESSING CHANGE DRESSING CHANGED TO LOWER BACK INCISION. MOD PURULENT DRAINAGE NOTED ON PREVIOUS DRESSING WITH MILD ODOR. CLEANSED WOUND WITH NS, PATTED DRY WITH STERILE GAUZE. HONEY GAUZE APPLIED TO SITE, SECURED WITH PRIMAPORE DRESSING. PATIENT TOLERATED WELL.
--- NOTE | 2018-10-09 06:30 | NUR ---
Midline Line Dressing Changes Midline dressing change done with a sterile technique. Cleansed with ChloraPrep scrub. Stat lock, and bio-patch replaced. Occlusive dressing applied. Changed clave.
[2018-10-09] MEDS: InsuLIN REG 1unit/0.01ml Soln (100units/ml) SC SCH ×2 (06:33→11:30)
[2018-10-09] MEDS: ACCU-CHEK COMFORT CURVE STRIP VI SCH ×2 (06:33→12:37)
[2018-10-09] MEDS: GABAPENTIN 300 MG CAP PO SCH ×3 (06:33→21:26)
[2018-10-09] MEDS: SODIUM CHLORIDE 0.9% 1,000 ML IV SCH ×2 (06:33→22:38)
--- NOTE | 2018-10-09 07:30 | NUR ---
Opening Shift Note Assumed care of patient, awake, alert, and oriented x4. No S/S of distress/SOB, but patient reporting pain in the medial-lower back of 10/10. Midline is in left upper arm and is asymptomatic, intact, patent, and is infusing normal saline at 75 mL/hour. Burrows catheter is patent and draining straw colored urine to gravity. Bed is locked and in lowest position and call light is within reach. Instructed on POC and to call for assist PRN, and patient verbalized understanding. Will continue to monitor for changes Q1hr and PRN./
--- NOTE | 2018-10-09 08:30 | NUR ---
Dr. Steen, Hospitalist, at bedside; new orders received.
[2018-10-09 09:00] VITALS: BP 156/96
[2018-10-09] MEDS: LEVOFLOXACIN 500MG 100 ML IV SCH (09:29)
[2018-10-09] MEDS: FOLIC ACID 1 MG TAB PO SCH (09:29)
[2018-10-09] MEDS: FAMOTIDINE 20 MG TAB PO SCH (09:29)
[2018-10-09] MEDS: POTASSIUM CHL 20 Meq TABLET PO SCH (09:30)
[2018-10-09] MEDS: DULoxetine HCL 30 MG CAP PO SCH (09:30)
[2018-10-09] MEDS: FERROUS SULFATE 325 MG TAB PO SCH ×2 (09:30→21:24)
[2018-10-09] MEDS ORDERED: ALBUTEROL SULF 2.5 MG/0.5ML(0.5%) NEB SOLN NEB PRN (10:00)
--- NOTE | 2018-10-09 10:36 | NUR ---
Nutrition Follow-up Notes Wt.: 91.7 kg Pt awake confused with no family but FOREST PATHOLOGY PROFESSOR by bedside. per pt records pt with UTI. pt is currently on CCHO 60 gm/meal diet with fair PO of avg 60% x 4 per RN doc Est. Needs: 1350 kcal to 1800 kcal (15-20 kcal/kgBW), 52 gms to 62 gms pro (1.0-1.2 gms/kgBW). Will continue to monitor pertinent labs and reassess nutrient need prn Labs: CA 8.2 L, ALB 2.9 L Skin: Song scale 15, mod risk, pt with incision on back per phlebotomy instructor. GI: Pt had 1 BM on 10/06 per phlebotomy instructor. PES: Altered nutrition related lab values r/t acute/chronic medical condition aeb hyperglycemia, elev. renal labs, ALP and mod hypoalbuminemia Obesity r/t excessive PO intake aeb 174% IBW, BMI 35.5 kg/m2 and increased body adiposity Will continue to monitor PO intake, skin status, pertinent labs and weight trend. F/u in 3 to 5 days. Rec.: 1.) Consider Consistent Standard Carb: 60 gms/meal,Cardiac: 2 gms Na, Low Chol, Low Fat diet 2.) If Albumin level continues trending down with improved renal labs, consider Prostat 1 pkt BID. 3.) Consider daily MVI with minerals and Asc acid 500 mgs BID. 4.) Continue close supervision with meals 5.) Refer to RD for further nutrition education and weight monitoring upon discharged. 5.) Continue current plan of care.
[2018-10-09 13:00] VITALS: BP 152/92
[2018-10-09] MEDS: DOCUSATE SOD 100 MG CAP PO SCH ×2 (13:51→21:26)
[2018-10-09] MEDS: HYDROcodone-ACET 5/325MG TAB PO PRN (13:52)
--- NOTE | 2018-10-09 16:34 | NUR ---
TRANSFER PACKET FAXED TO [facility]
[2018-10-09 17:00] VITALS: BP 149/80
[2018-10-09] MEDS: TEMAZEPAM 15 MG CAP PO SCH (21:26)
[2018-10-09 21:51] VITALS: BP 140/87
--- NOTE | 2018-10-09 22:22 | NUR ---
Liss Anne with [employer] regarding patient transfer orders to [facility]; awaiting reply. Addendum: 10/09/18 at 2224 by NINO NULL RN RN Time of note above should read 1000.
--- NOTE | 2018-10-09 23:40 | NUR ---
RECEIVED REPORT FROM JENNIFER ONEILL WILL ASSUME CARE OF PATIENT. PATIENT IS RESTING IN BED WITH EYES CLOSED. NO S/S OF DISTRESS NOTED. CALL LIGHT WITHIN REACH
--- NOTE | 2018-10-10 00:20 | NUR ---
WOUND CARE WOUND CARE DONE TO LOWER BACK SURGICAL SITE. OLD DRESSING CAME OFF DURING REPOSITIONING. WOUND CARE DONE PER WOUND CARE NURSE RECOMMENDATIONS. PATIENT TOLERATED WELL. MODERATE AMOUNT OF THICK WHITE COLORED DRAINAGE FROM SITE.
[2018-10-10] MEDS: MORPHINE SULF INJ 2 MG/ML SYRINGE 1ML IV PRN ×5 (00:21→19:22)
[2018-10-10 05:08] VITALS: BP 148/69
[2018-10-10] MEDS: GABAPENTIN 300 MG CAP PO SCH ×2 (05:51→13:44)
--- NOTE | 2018-10-10 06:47 | NUR ---
CLOSING PATIENT IS SLEEPING. VISIBLE RISE AND FALL OF CHEST NOTED. NO S/S OF DISTRESS. CALL LIGHT WITHIN REACH. DRESSING TO LOWER BACK INTACT, NO DRAINAGE NOTED. WILL ENDORSE CARE TO DAYSHIFT RN.
--- NOTE | 2018-10-10 07:30 | NUR ---
OPENING NOTE ASSUMED CARE OF PT. ALERT AND ORIENTED. NO SINGS OF SOB/DISTRESS NOTED. BED SET TO LOWEST POSITION/LOCKED. BEDSIDE RAILS UP X2. CALL LIGHT WITHIN REACH. INSTRUCTED PT TO CALL FOR ASSISTANCE. DISCUSSED POC. PT VERBALIZED UNDERSTANDING. WILL CONTINUE TO MONITOR Q1HR AND PRN.
--- NOTE | 2018-10-10 08:10 | NUR ---
PRN [place] TX NOT INDICATED AT THIS TIME. PT IS AWAKE, ALERT AND ORIENTED. PT ON 3L/MIN VIA NC. 94%O2 SATS, HR 102 BPM, RR19 BPM, SKIN IS DRY AND WARM TO THE TOUCH. BS ARE BIBASILARLY DIMINISHED TO AUSCULTATION. RESPIRATION IS EVEN AND NON LABORED. NO SOB OR ANY OTHER RESPIRATORY DISTRESS NOTED. PT INSTRUCTED TO CALL IF [place] TX IS INDICATED. PT VERBALIZED UNDERSTANDING. WILL CONTINUE TO MONITOR PT.
[2018-10-10] MEDS: LEVOFLOXACIN 500MG 100 ML IV SCH (09:06)
[2018-10-10] MEDS: FAMOTIDINE 20 MG TAB PO SCH (09:07)
[2018-10-10] MEDS: DULoxetine HCL 30 MG CAP PO SCH (09:07)
[2018-10-10] MEDS: POTASSIUM CHL 20 Meq TABLET PO SCH (09:07)
[2018-10-10] MEDS: DOCUSATE SOD 100 MG CAP PO SCH (09:07)
[2018-10-10] MEDS: FOLIC ACID 1 MG TAB PO SCH (09:07)
[2018-10-10] MEDS: FERROUS SULFATE 325 MG TAB PO SCH (09:07)
[2018-10-10 09:36] VITALS: BP 148/89
--- NOTE | 2018-10-10 12:02 | NUR ---
WOUND CARE NOTE: Wound care in to see patient for reevaluation of patient's lower back wound. Patient continue resting in bed in Rm. 246B. She's awake, alert and oriented. Patient is in no stated pain at this time however reports of mild pain upon turning. She's able to assist with turning and repositioning. Her current Song score is 16. Skin/wound assessment done with the assistance of patient's nurse, JENNIFER Pal. Patient's lower back incision measuring 6x0.5cm from previous lumbar spinal surgery at [facility]. Wound is red, pale pink with yellow slough, minimal serous drainage noted, no odor noted. CT and MRI are done (see result). Patient is awaiting transfer to higher level of care. Cleansed wound with NS, patted dry with sterile gauze,applied Thera honey gel, covered wound with non-adherent (Telfa) and secured with Medipore tape. New photograph of wound are taken for reference. No pressure injury noted. Patient tolerated skin examination well. Patient's education given regarding skin protection measures, verbalized understanding. Repositioned for comfort facing her Rt side, redistributed pressure points with pillows. JENNIFER Pal at bedside. RECOMMENDATION: Continuation of all wound care orders prescribed by MD, continue with skin/wound plan of care, continue monitoring by wound care while patient is hospitalized. Addendum: 10/10/18 at 1548 by Rosalind Powers RN Amended: Links added.
[2018-10-10] MEDS: SODIUM CHLORIDE 0.9% 1,000 ML IV SCH (13:00)
[2018-10-10 13:42] VITALS: BP 134/93
--- NOTE | 2018-10-10 17:05 | NUR ---
RECEIVED CALL FROM PORFIRIO FROM [facility] . PATIENT HAS A BED. ROOM #12 BED 13. ACCEPTING MD IS ANA MARIA POSADA. CALL REPORT TO . WILL CALL PORFIRIO WITH AIRPLANE NAVIGATOR TIME.
[2018-10-10 17:15] VITALS: BP 149/84
--- NOTE | 2018-10-10 17:41 | NUR ---
SPOKE TO BRIAN FROM [facility] . FINISH PRODUCTION MANAGER TIME 1900.
[2018-10-10 18:34] VITALS: BP 149/84
--- NOTE | 2018-10-10 19:35 | NUR ---
TRANSFER TO [facility] Discharge papers completed by JENNIFER Pal and verified by this RN. Discharge instructions given as ordered. All questions and concerns addressed. Patient verbalized understanding. Patient was transferred with IV and kaufman catheter as ordered by MD. Medication reconciliation form completed and copy given to patient. Telemetry unit returned to ICU. Report given to Elana Granado RN at 20:16 PM. Patient transported by [facility] with all personal belongings. No distress noted at time of departure.
--- NOTE | 2018-10-10 19:59 | NUR ---
ENDORSED CARE TO JENNIFER GUTIERREZ.
== END 2018-10-10 19:35 | disposition short-term general hospital (02) | DRG 862 ==
LOC: ER 12:00 → EDBD 12:00 → TELE 12:01 → TELE-EAST 19:33
PROVIDERS: ADMIT Nurse Practitioner Acute Care; ATTEND Family Medicine
DX: T81.49XA Infection following a procedure, other surgical site, initial encounter (principal); A41.81 Sepsis due to Enterococcus; J96.20 Acute and chronic respiratory failure, unspecified whether with hypoxia or hypercapnia; N10 Acute pyelonephritis; I13.0 Hypertensive heart and chronic kidney disease with heart failure and stage 1 through stage 4 chronic kidney disease, or unspecified chronic kidney disease; J84.9 Interstitial pulmonary disease, unspecified; E44.0 Moderate protein-calorie malnutrition; K80.20 Calculus of gallbladder without cholecystitis without obstruction; N18.3 Chronic kidney disease, stage 3 (moderate); E86.0 Dehydration; I25.10 Atherosclerotic heart disease of native coronary artery without angina pectoris; D63.8 Anemia in other chronic diseases classified elsewhere; E03.9 Hypothyroidism, unspecified; E11.22 Type 2 diabetes mellitus with diabetic chronic kidney disease; E11.40 Type 2 diabetes mellitus with diabetic neuropathy, unspecified; E66.9 Obesity, unspecified; E78.5 Hyperlipidemia, unspecified; G89.29 Other chronic pain; I50.9 Heart failure, unspecified; I70.0 Atherosclerosis of aorta; J44.9 Chronic obstructive pulmonary disease, unspecified; M19.90 Unspecified osteoarthritis, unspecified site; B96.20 Unspecified Escherichia coli [E. coli] as the cause of diseases classified elsewhere; B96.5 Pseudomonas (aeruginosa) (mallei) (pseudomallei) as the cause of diseases classified elsewhere; B95.61 Methicillin susceptible Staphylococcus aureus infection as the cause of diseases classified elsewhere; F32.9 Major depressive disorder, single episode, unspecified; K59.00 Constipation, unspecified; Z68.36 Body mass index [BMI] 36.0-36.9, adult; N28.1 Cyst of kidney, acquired; Z75.1 Person awaiting admission to adequate facility elsewhere; Z79.51 Long term (current) use of inhaled steroids; Z79.84 Long term (current) use of oral hypoglycemic drugs; Z79.899 Other long term (current) drug therapy; Z82.49 Family history of ischemic heart disease and other diseases of the circulatory system; Z90.710 Acquired absence of both cervix and uterus; Z99.81 Dependence on supplemental oxygen; Z90.49 Acquired absence of other specified parts of digestive tract; Z87.440 Personal history of urinary (tract) infections
CPT/HCPCS: 36415; 36600; 71045; 72131; 72158; 74176; 80048; 80053; 80202; 81001; 82565; 82805; 82962; 83605; 83690; 83735; 85007; 85025; 85027; 85610; 85730; 87040; 87077; 87081; 87086; 87186; 87205; 93005; 94640; 94761; 96361; 96365; 96375; 97110; 97530; G0378; J0696; J1335; J1815; J1956; J2185; J2405; J2543